=== PATIENT | female | born 1995 | race Caucasian/White ===

== ENCOUNTER 2016-07-15 20:58 | Emergency (ER) | payer MEDICAID ==
[2016-07-15 21:06] VITALS: BP 136/84
[2016-07-15] MEDS ORDERED: Alum Hydrox/Mag Hydrox/Simeth 30 ML, Lidocaine 2% 15 ML PO ONE ×2 (21:19)
[2016-07-15] MEDS ORDERED: Acetaminophen/oxyCODONE 325-5 MG Tab PO ONE (22:08)
--- NOTE | 2016-07-15 22:27 | EDM.PDOC ---
ED HPI GENERAL MEDICAL PROBLEM - General Chief Complaint: Abdominal Pain Stated Complaint: ABDOMINAL PAIN Time Seen by Provider: 07/15/16 21:10 Source of Information: Reports: Patient History Limitations: Reports: No Limitations - History of Present Illness INITIAL COMMENTS - FREE TEXT/NARRATIVE: This is a 20-year-old female. She's been having some upper abdominal pain on and off since she had a 5 months ago. He says the pain first started about a month after her and she drank some milk and it seemed to use the pain up. She has been taking Nexium recently to help with the pain and she states when it occurs normally she just tries to relax and oftentimes will go away. Over the last month and a half the pain has been more frequent and more severe. She had an ultrasound 2 weeks ago the gallbladder that did not show any acute findings. She has not had a HIDA scan. The milk that she normally takes did not help the pain today. It started around 9 AM this morning with nausea vomiting and diarrhea. Despite drinking the milk and taking the Nexium the pain has continued and seems to radiate around to her back on both sides. She denies any fever or chills no cough. 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 Neuro History: meningitis - Infectious Disease History Infectious Disease History: Reports: Meningitis - Past Surgical History GI Surgical History: Reports: None Social & Family History - Family History Family Medical History: Noncontributory - Tobacco Use Smoking Status *Q: Never Smoker Years of Tobacco use: 1 Packs/Tins Daily: 0.5 Used Tobacco, but Quit: Yes Month Tobacco Last Used: 05/2015 Second Hand Smoke Exposure: No - Caffeine Use Caffeine Use: Reports: None - Recreational Drug Use Recreational Drug Use: No ED ROS GENERAL - Review of Systems Review Of Systems: See Below Constitutional: Denies: Fever, Chills HEENT: Reports: No Symptoms Respiratory: Reports: No Symptoms Cardiovascular: Reports: No Symptoms Endocrine: Reports: No Symptoms GI/Abdominal: Reports: Abdominal Pain, Diarrhea, Nausea, Vomiting : Reports: No Symptoms Musculoskeletal: Reports: No Symptoms Skin: Reports: No Symptoms Neurological: Reports: No Symptoms Psychiatric: Reports: No Symptoms ED EXAM, GI/ABD - Physical Exam Exam: See Below Exam Limited By: No Limitations General Appearance: Alert, WD/WN, Mild Distress Eyes: Bilateral: Normal Appearance Ears: Normal External Exam Nose: Normal Inspection Throat/Mouth: Normal Inspection, Normal Lips, Normal Voice Head: Normocephalic Neck: Supple Respiratory/Chest: No Respiratory Distress, Lungs Clear Cardiovascular: Regular Rate, Rhythm, No Murmur GI/Abdominal: Soft, Other (Palpation of her upper abdomen reveals tenderness all across the upper part of her abdomen but point tenderness especially in the epigastric region, she does have bowel sounds they are decreased she does have some mild soreness in the lower abdomen over her ). No: Guarding, Rebound, Rigidity Back Exam: Full Range of Motion Extremities: Normal Inspection, Normal Range of Motion Neurological: Alert, Oriented Psychiatric: Normal Affect, Normal Mood Skin Exam: Warm, Dry Course - Vital Signs Last Recorded V/S: Last Vital Signs Temp 98.1 F 07/15/16 21:04 Pulse 103 H 07/15/16 21:04 Resp 18 07/15/16 21:04 BP 136/84 07/15/16 21:04 Pulse Ox 97 07/15/16 21:04 - Orders/Labs/Meds Labs: Laboratory Tests 07/15/16 07/15/16 Range/Units 22:19 22:19 WBC 15.64 H (3.98-10.04) K/mm3 RBC 5.00 (3.98-5.22) M/mm3 Hgb 12.5 (11.2-15.7) gm/L Hct 39.1 (34.1-44.9) % MCV 78.2 L (79.4-94.8) fl MCH 25.0 L (25.6-32.2) pg MCHC 32.0 L (32.2-35.5) g/dl RDW Std Deviation 47.8 H (36.4-46.3) fL Plt Count 421 H (182-369) K/mm3 MPV 10.3 (9.4-12.3) fl Neut % (Auto) 63.1 (34.0-71.1) % Lymph % (Auto) 29.1 (19.3-51.7) % [place] % (Auto) 4.0 L (4.7-12.5) % Eos % (Auto) 3.3 (0.7-5.8) Baso % (Auto) 0.2 (0.1-1.2) % Neut # (Auto) 9.89 H (1.56-6.13) K/mm3 Lymph # (Auto) 4.55 H (1.18-3.74) K/mm3 [place] # (Auto) 0.62 H (0.24-0.36) K/mm3 Eos # (Auto) 0.51 H (0.04-0.36) K/mm3 Baso # (Auto) 0.03 (0.01-0.08) K/mm3 Sodium 142 (136-145) mEq/L Potassium 4.0 (3.5-5.1) mEq/L Chloride 105 (98-107) mEq/L Carbon Dioxide 26 (21-32) mEq/L Anion Gap 15.0 (5-15) BUN 11 (7-18) mg/dL Creatinine 0.8 (0.55-1.02) mg/dL Est Cr Clr Drug Dosing 85.35 mL/min Estimated GFR (MDRD) > 60 (>60) mL/min BUN/Creatinine Ratio 13.8 L (14-18) Glucose 116 H (74-106) mg/dL Calcium 9.0 (8.5-10.1) mg/dL Total Bilirubin 0.2 (0.2-1.0) mg/dL AST 12 L (15-37) U/L ALT 28 (14-59) U/L Alkaline Phosphatase 116 (46-116) U/L Total Protein 7.5 (6.4-8.2) g/dl Albumin 3.7 (3.4-5.0) g/dl Globulin 3.8 gm/dL Albumin/Globulin Ratio 1.0 (1-2) Lipase 139 (73-393) U/L Meds: Medications Discontinued Medications Generic Name Dose Route Start Last Admin Trade Name Valarie PRN Reason Stop Dose Admin Al Hydroxide/Mg Hydroxide 30 0 ml 07/15/16 21:19 07/15/16 21:24 ml/ Lidocaine HCl 15 ml PO 07/15/16 21:20 45 ml ONETIME ONE Administration Oxycodone/Acetaminophen 1 tab 07/15/16 22:08 07/15/16 22:23 Percocet 325-5 Mg PO 07/15/16 22:09 Not Given ONETIME ONE - Re-Assessments/Exams Free Text/Narrative Re-Assessment/Exam: 07/16/16 01:01 I spoke to the patient regarding her symptoms. A GI cocktail relieved her pain finally completely. Her white count was 15,000 but she tells me over the last couple of years all the doctors tell her that her white count is elevated but they don't know why. I encouraged her to follow up with her family doctor for continued workup of her abdominal pain with a HIDA scan or possible upper endoscopy Departure - Departure Time of Disposition: 01:02 Disposition: Home, Self-Care 01 Condition: good Clinical Impression: Upper abdominal pain Nausea and vomiting Qualifiers: Vomiting type: unspecified Vomiting Intractability: non-intractable Qualified Code(s): R11.2 - Nausea with vomiting, unspecified - Discharge Information Instructions: Abdominal Pain, Adult, [id number] Referrals: Malinda Larios PA [Primary Care Provider] - Forms: ED Department Discharge Additional Instructions: Continue with your Nexium, get some Mylanta liquid or Maalox liquid intake it he would have the severe upper abdominal pain him a remember Mylanta will give you loose stools and Maalox we'll give you constipation so if you are to have hard stools get the Mylanta if you loose stools get the Maalox, you need to followup with your family doctor this week for a possible HIDA scan and/or referral for upper endoscopy, return to the ER as needed
== END 2016-07-16 01:15 | disposition home or self-care (01) ==
LOC: JD.ED 20:58
DX: R10.13 Epigastric pain (principal); G43.909 Migraine, unspecified, not intractable, without status migrainosus; R11.2 Nausea with vomiting, unspecified; K21.9 Gastro-esophageal reflux disease without esophagitis; Z88.0 Allergy status to penicillin; Z88.1 Allergy status to other antibiotic agents; Z91.040 Latex allergy status; Z79.899 Other long term (current) drug therapy
CPT/HCPCS: 36415; 80053; 83690; 85025; 99284; A9270; 99283

== ENCOUNTER 2016-07-28 14:03 | Emergency (ER) | payer MEDICAID ==
[2016-07-28 14:23] VITALS: BP 115/90
[2016-07-28] MEDS ORDERED: Ketorolac 30 MG/ML SDV IVPUSH ONE (14:56)
[2016-07-28] MEDS ORDERED: Sodium Chloride 0.9% 10 ML Syringe FLUSH PRN (14:56)
[2016-07-28] MEDS ORDERED: HYDROmorphone 0.5 MG/0.5 ML Syringe IVPUSH ONE (14:56)
[2016-07-28] MEDS ORDERED: Ondansetron 4 MG/2 ML SDV IVPUSH ONE (14:56)
[2016-07-28] MEDS ORDERED: Sodium Chloride 0.9% 1,000 ML IV ONE (15:31)
--- NOTE | 2016-07-28 16:01 | EDM.PDOC ---
ED HPI GENERAL MEDICAL PROBLEM - General Chief Complaint: Abdominal Pain Stated Complaint: Epigastric pain Time Seen by Provider: 07/28/16 14:40 Source of Information: Reports: Patient, Old Records, RN Notes Reviewed History Limitations: Reports: No Limitations - History of Present Illness INITIAL COMMENTS - FREE TEXT/NARRATIVE: 20 year old female presents to the ED with complaints of intermittent, severe, epigastric abdominal pain. The pain radiates into her back. No radiation to her shoulder. The pain started in February of this year, 3 weeks after having a baby. She has seen her PCP Malinda Larios for the problem and is scheduled for an outpatient EGD next week. She's had a gallbladder ultrasound which she was told was normal. She developed severe 10/10 pain after eating a sandwich around noon today which prompted her to come to the ED. She has associated nausea, vomiting , and diarrhea with the pain episodes. The pain is worse with eating and intermittent. She has cut out high fat foods, spicy foods, acidic foods, and caffeine. She denies fever or chills but says her WBC has been elevated. No chest pain, shortness of breath, or pleuritic chest pain. She is not . Denies possibilty of . Epigastric Pain Score (Numeric/FACES): 10 - Related Data Allergies Allergy/AdvReac Type Severity Reaction Status Date / Time latex Allergy Hives Verified 07/28/16 18:49 Penicillins Allergy Anaphylactic Verified 07/28/16 18:49 Shock vancomycin Allergy Itching Verified 07/28/16 18:49 Home Meds: Home Meds Esomeprazole Magnesium [Nexium 24Hr] 1 tab PO DAILY 07/15/16 [History] Acetaminophen/HYDROcodone [[place] 325-5 MG] 1 - 2 tab PO Q6H PRN #15 tablet 07/28 [Rx] Hyoscyamine Sulfate [Levsin-Sl] 0.125 mg SL TID PRN #15 tab.subl 07/28/16 [Rx] Levofloxacin [Levaquin] 500 mg PO Q24H #10 tablet 07/28/16 [Rx] Ondansetron HCl [Zofran] 4 mg PO Q8H PRN #15 tablet 07/28/16 [Rx] Past Medical History - Past Health History Medical/Surgical History: Denies Medical/Surgical History 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 History: Reports: GERD 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 Neuro History: meningitis - Infectious Disease History Infectious Disease History: Reports: Meningitis - Past Surgical History GI Surgical History: Reports: None Social & Family History - Family History Family Medical History: Noncontributory - Tobacco Use Smoking Status *Q: Current Every Day Smoker Years of Tobacco use: 3 Packs/Tins Daily: 0.5 Used Tobacco, but Quit: Yes Month Tobacco Last Used: 05/2015 Second Hand Smoke Exposure: No - Caffeine Use Caffeine Use: Reports: None - Recreational Drug Use Recreational Drug Use: No ED ROS GENERAL - Review of Systems Review Of Systems: See Below Constitutional: Reports: No Symptoms. Denies: Fever, Chills Respiratory: Reports: No Symptoms. Denies: Shortness of Breath Cardiovascular: Reports: No Symptoms. Denies: Chest Pain GI/Abdominal: Reports: Abdominal Pain, Diarrhea, Nausea, Vomiting ED EXAM, GI/ABD - Physical Exam Exam: See Below Exam Limited By: No Limitations General Appearance: Alert, WD/WN, No Apparent Distress Respiratory/Chest: No Respiratory Distress, Lungs Clear, Normal Breath Sounds Cardiovascular: Tachycardia GI/Abdominal: Normal Bowel Sounds, Soft, No Organomegaly, No Distention, Tenderness (epigastric ). No: McBurney's Sign, Snyder's Sign Back Exam: Normal Inspection, Full Range of Motion. No: CVA Tenderness (L), CVA Tenderness (R) Neurological: Alert, Oriented, Normal Cognition Course - Vital Signs Last Recorded V/S: Last Vital Signs Temp 97.8 F 07/28/16 14:18 Pulse 130 H 07/28/16 14:18 Resp 18 07/28/16 14:18 BP 115/90 07/28/16 14:18 Pulse Ox 96 07/28/16 14:18 - Orders/Labs/Meds Orders: Active Orders 24 hr Category Date Time Status Peripheral IV Care [RC] . DIRECTED Care 07/28/16 14:58 Active Peripheral IV Insertion Adult [OM.PC] Stat Oth 07/28/16 14:56 Ordered Labs: Laboratory Tests 07/28/16 07/28/16 07/28/16 Range/Units 14:45 14:45 14:45 WBC 17.56 H (3.98-10.04) K/mm3 RBC 6.05 H (3.98-5.22) M/mm3 Hgb 15.0 (11.2-15.7) gm/L Hct 46.4 H (34.1-44.9) % MCV 76.7 L (79.4-94.8) fl MCH 24.8 L (25.6-32.2) pg MCHC 32.3 (32.2-35.5) g/dl RDW Std Deviation 46.7 H (36.4-46.3) fL Plt Count 564 H (182-369) K/mm3 MPV 10.2 (9.4-12.3) fl Neutrophils % (Manual) 64 H (40-60) % Band Neutrophils % 0 (0-10) % Lymphocytes % (Manual) 32 (20-40) % Atypical Lymphs % 0 % Monocytes % (Manual) 2 (2-10) % Eosinophils % (Manual) 2 (0.7-5.8) % Basophils % (Manual) 0 L (0.1-1.2) Platelet Estimate Adequate Plt Morphology Comment Normal RBC Morph Comment Normal Sodium 139 (136-145) mEq/L Potassium 4.0 (3.5-5.1) mEq/L Chloride 102 (98-107) mEq/L Carbon Dioxide 22 (21-32) mEq/L Anion Gap 19.0 H (5-15) BUN 9 (7-18) mg/dL Creatinine 0.7 (0.55-1.02) mg/dL Est Cr Clr Drug Dosing 97.54 mL/min Estimated GFR (MDRD) > 60 (>60) mL/min BUN/Creatinine Ratio 12.9 L (14-18) Glucose 97 (74-106) mg/dL Calcium 9.4 (8.5-10.1) mg/dL Total Bilirubin 0.4 (0.2-1.0) mg/dL AST 20 (15-37) U/L ALT 34 (14-59) U/L Alkaline Phosphatase 124 H (46-116) U/L C-Reactive Protein 1.0 (<1.0) mg/dL Total Protein 8.9 H (6.4-8.2) g/dl Albumin 4.3 (3.4-5.0) g/dl Globulin 4.6 gm/dL Albumin/Globulin Ratio 0.9 L (1-2) Lipase 6377 H (73-393) U/L Meds: Medications Discontinued Medications Generic Name Dose Route Start Last Admin Trade Name Georgeq PRN Reason Stop Dose Admin Hydromorphone HCl 0.5 mg 07/28/16 14:56 07/28/16 15:05 Dilaudid IVPUSH 07/28/16 14:57 0.5 mg ONETIME ONE Administration Sodium Chloride 1,000 mls @ 999 mls/hr 07/28/16 15:31 07/28/16 15:45 Normal Saline IV 07/28/16 16:31 999 mls/hr ONETIME ONE Administration Ketorolac Tromethamine 30 mg 07/28/16 14:56 07/28/16 15:04 Toradol IVPUSH 07/28/16 14:57 30 mg ONETIME ONE Administration Ondansetron HCl 4 mg 07/28/16 14:56 07/28/16 15:03 Zofran IVPUSH 07/28/16 14:57 4 mg ONETIME ONE Administration Sodium Chloride 10 ml 07/28/16 14:56 07/28/16 15:05 Saline Flush FLUSH 10 ml ASDIRECTED PRN Administration Keep Vein Open - Re-Assessments/Exams Free Text/Narrative Re-Assessment/Exam: CBC reveals elevated WBC of 17,000 with no shift. CMP reveals anion gap of 19, bilirubin 0.4, AST 20, ALT, 34, and alk phos is mildly elevated at 124. The patient's pain and nausea resolved with Dilaudid, Toradol and Zofran. Bilirubin and liver enzymes were essentially normal. Ultrasound was not ordered since patient ate around noon today. Discussed with Dr. Harmon who recommended setting her up for a HIDA scan and starting her on Levaquin. Patient discharged with this plan and instructed to f/u with Dr. Lipscomb next week. 1730 Patient was discharged home prior to lipase result. Lipase came back at 6377 indicating acute pancreatitis. Discussed with Dr. Harmon who recommended that we have the patient return and to obtain CT of abdomen/pelvis with IV contrast only. The patient was called and has agreed to return to the ED. Departure - Departure Time of Disposition: 15:57 Disposition: Home, Self-Care 01 Condition: Good Clinical Impression: Epigastric pain - Discharge Information Prescriptions: Acetaminophen/HYDROcodone [[place] 325-5 MG] 1 - 2 tab PO Q6H PRN #15 tablet PRN Reason: Pain Hyoscyamine Sulfate [Levsin-Sl] 0.125 mg SL TID PRN #15 tab.subl PRN Reason: Abdominal Pain Levofloxacin [Levaquin] 500 mg PO Q24H #10 tablet Ondansetron HCl [Zofran] 4 mg PO Q8H PRN #15 tablet PRN Reason: Nausea/Vomiting Instructions: Abdominal Pain, Adult, [id number] Referrals: Malinda Larios PA [Primary Care Provider] - Forms: ED Department Discharge Additional Instructions: Hida Scan is scheduled for 9:30am on MondayAugust 03. Come to the Radiology department 20 minutes prior to your appointment time. Follow-up with Dr. Lipscomb next week Levsin 0.125mg under your tongue 3 times a day as eneded for abdominal pain [place] 1-2 tabs every6 hours as needed for pain not relieved by Levsin Ondansatron 4mg every 8 hours as needed for nausea Levaquin 500mg once a day for 10 days Follow-up with Dr. Lipscomb as scheduled - My Orders Last 24 Hours: My Active Orders 07/28/16 14:56 Peripheral IV Insertion Adult [OM.PC] Stat 07/28/16 14:58 Peripheral IV Care [RC] . DIRECTED - Assessment/Plan Last 24 Hours: My Active Orders 07/28/16 14:56 Peripheral IV Insertion Adult [OM.PC] Stat 07/28/16 14:58 Peripheral IV Care [RC] . DIRECTED
== END 2016-07-28 16:27 | disposition home or self-care (01) ==
LOC: JD.ED 14:03
DX: R10.13 Epigastric pain (principal); K21.9 Gastro-esophageal reflux disease without esophagitis; F17.210 Nicotine dependence, cigarettes, uncomplicated; Z79.899 Other long term (current) drug therapy; Z88.0 Allergy status to penicillin; Z88.1 Allergy status to other antibiotic agents; Z91.040 Latex allergy status
CPT/HCPCS: 36415; 80053; 83690; 85025; 86140; 96361; 96365; 96375; 99285; J1170; J1885; J2405; J7040; J7050; 99284

== ENCOUNTER 2016-07-28 18:41 | Inpatient (IN) | payer MEDICAID ==
[2016-07-28] MEDS ORDERED: Sodium Chloride 0.9% 10 ML Syringe FLUSH PRN ×2 (18:51→19:13)
[2016-07-28] MEDS ORDERED: Iopamidol 612 MG/ML 150 ML Bottle IVPUSH ONE (19:13)
[2016-07-28] MEDS ORDERED: Levofloxacin/Dextrose 5%-Water 500 MG in Premix Bag 1 BAG IV ONE (20:05)
--- NOTE | 2016-07-28 20:05 | EDM.PDOC ---
ED HPI GENERAL MEDICAL PROBLEM - General Chief Complaint: Abdominal Pain Stated Complaint: Epigastric pain Time Seen by Provider: 07/28/16 18:45 Source of Information: Reports: Patient, Old Records, RN Notes Reviewed History Limitations: Reports: No Limitations - History of Present Illness INITIAL COMMENTS - FREE TEXT/NARRATIVE: 20 year old female was seen in the ED earlier today for epigastric pain. She was discharged home with plan for HIDA scan and oral antibiotics. She was discharged prior to lipase result. Lipase came back at 6377 indicating acute pancreatitis. She was phoned to come back with plan to admit to the hospital. History is unchanged from previous visit. HPI as follows: 20 year old female presents to the ED with complaints of intermittent, severe, epigastric abdominal pain. The pain radiates into her back. No radiation to her shoulder. The pain started in February of this year, 3 weeks after having a baby. She has seen her PCP Malinda Samples for the problem and is scheduled for an outpatient EGD next week. She's had a gallbladder ultrasound which she was told was normal. She developed severe 10/10 pain after eating a sandwich around noon today which prompted her to come to the ED. She has associated nausea, vomiting, and diarrhea with the pain episodes. The pain is worse with eating and intermittent. She has cut out high fat foods, spicy foods, acidic foods, and caffeine. She denies fever or chills but says her WBC has been elevated. No chest pain, shortness of breath, or pleuritic chest pain. Abdomen Pain Score (Numeric/FACES): 2 - Related Data Allergies Allergy/AdvReac Type Severity Reaction Status Date / Time latex Allergy Hives Verified 07/28/16 18:49 Penicillins Allergy Anaphylactic Verified 07/28/16 18:49 Shock vancomycin Allergy Itching Verified 07/28/16 18:49 Home Meds: Home Meds Esomeprazole Magnesium [Nexium 24Hr] 1 tab PO DAILY 07/15/16 [History] Acetaminophen/HYDROcodone [[place] 325-5 MG] 1 - 2 tab PO Q6H PRN #15 tablet 07/28 [Rx] Hyoscyamine Sulfate [Levsin-Sl] 0.125 mg SL TID PRN #15 tab.subl 07/28/16 [Rx] Levofloxacin [Levaquin] 500 mg PO Q24H #10 tablet 07/28/16 [Rx] Ondansetron HCl [Zofran] 4 mg PO Q8H PRN #15 tablet 07/28/16 [Rx] Past Medical History - Past Health History Medical/Surgical History: Denies Medical/Surgical History 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 History: Reports: GERD 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 Neuro History: meningitis - Infectious Disease History Infectious Disease History: Reports: Meningitis - Past Surgical History GI Surgical History: Reports: None Social & Family History - Family History Family Medical History: Noncontributory - Tobacco Use Smoking Status *Q: Never Smoker Years of Tobacco use: 3 Packs/Tins Daily: 0.5 Used Tobacco, but Quit: Yes Month Tobacco Last Used: 05/2015 Second Hand Smoke Exposure: No - Caffeine Use Caffeine Use: Reports: None - Recreational Drug Use Recreational Drug Use: No ED ROS GENERAL - Review of Systems Review Of Systems: See Below Constitutional: Reports: No Symptoms. Denies: Fever, Chills Respiratory: Reports: No Symptoms Cardiovascular: Reports: No Symptoms. Denies: Chest Pain GI/Abdominal: Reports: Abdominal Pain, Diarrhea, Nausea, Vomiting ED EXAM, GI/ABD - Physical Exam Exam: See Below Exam Limited By: No Limitations General Appearance: Alert, WD/WN, No Apparent Distress Respiratory/Chest: No Respiratory Distress, Lungs Clear, Normal Breath Sounds Cardiovascular: Regular Rate, Rhythm GI/Abdominal: Normal Bowel Sounds, Soft, No Organomegaly, No Distention, No Abnormal Bruit, Tenderness (epigastric ) Neurological: Alert, Oriented, Normal Cognition Course - Vital Signs Last Recorded V/S: Last Vital Signs Temp 97.1 F 07/28/16 18:46 Pulse 106 H 07/28/16 18:46 Resp 16 07/28/16 18:46 BP 123/79 07/28/16 18:46 Pulse Ox 98 07/28/16 18:46 - Orders/Labs/Meds Orders: Active Orders 24 hr Category Date Time Status Patient Status [ADT] Routine ADT 07/28/16 20:42 Ordered Peripheral IV Care [RC] . DIRECTED Care 07/28/16 18:52 Active Abdomen Pelvis w Cont [CT] Stat Exams 07/28/16 18:51 Taken Lactated Ringers [Ringers, Lactated] 1,000 ml Med 07/28/16 20:08 Active IV .BOLUS Levofloxacin/Dextrose 5%-Water [Levaquin in D5W 500 MG/ Med 07/28/16 20:05 Active 100 ML] 500 mg Premix Bag 1 bag IV ONETIME Sodium Chloride 0.9% [Saline Flush] Med 07/28/16 18:51 Active 10 ml FLUSH ASDIRECTED PRN Sodium Chloride 0.9% [Saline Flush] Med 07/28/16 19:13 Active 10 ml FLUSH ONETIME PRN Peripheral IV Insertion Adult [OM.PC] Stat Oth 07/28/16 18:51 Ordered Medication Orders Lactated Ringer's (Ringers, Lactated) 1,000 mls @ 999 mls/hr IV .BOLUS ONE Stop: 07/28/16 21:08 Last Admin: 07/28/16 20:18 Dose: 999 mls/hr Levofloxacin/Dextrose 500 mg/ (Premix) 100 mls @ 100 mls/hr IV ONETIME ONE Stop: 07/28/16 21:04 Last Admin: 07/28/16 20:19 Dose: 100 mls/hr Sodium Chloride (Saline Flush) 10 ml FLUSH ASDIRECTED PRN PRN Reason: Keep Vein Open Last Admin: 07/28/16 19:10 Dose: 10 ml Sodium Chloride (Saline Flush) 10 ml FLUSH ONETIME PRN PRN Reason: IV FLUSH Last Admin: 07/28/16 19:34 Dose: 10 ml Labs: Laboratory Tests 07/28/16 Range/Units 19:00 Urine HCG, Qual Negative (NEGATIVE) Meds: Medications Generic Name Dose Route Start Last Admin Trade Name Freq PRN Reason Stop Dose Admin Lactated Ringer's 1,000 mls @ 999 mls/hr 07/28/16 20:08 07/28/16 20:18 Ringers, Lactated IV 07/28/16 21:08 999 mls/hr .BOLUS ONE Administration Levofloxacin/Dextrose 500 mg/ 100 mls @ 100 mls/hr 07/28/16 20:05 07/28/16 20 :19 Premix IV 07/28/16 21:04 100 mls/hr ONETIME ONE Administration Sodium Chloride 10 ml 07/28/16 18:51 07/28/16 19:10 Saline Flush FLUSH 10 ml ASDIRECTED PRN Administration Keep Vein Open Sodium Chloride 10 ml 07/28/16 19:13 07/28/16 19:34 Saline Flush FLUSH 10 ml ONETIME PRN Administration IV FLUSH Discontinued Medications Generic Name Dose Route Start Last Admin Trade Name Georgeq PRN Reason Stop Dose Admin Iopamidol 150 ml 07/28/16 19:13 07/28/16 19:33 Isovue-300 (61%) IVPUSH 07/28/16 19:14 125 ml ONETIME ONE Administration - Re-Assessments/Exams Free Text/Narrative Re-Assessment/Exam: CT of abdomen/pelvis read by [facility], impression: 1. mild wall thickening of small bowel loops in the left upper quadrant suspiciuos for enteritis. This may be infecious or inflammatory in nature 2. Probable degenerating cyst of the right ovary 3. fatty infiltration of the wall of the ascending colon and transverse colon. Patient was given 1 liter LR bolus and Levaquin 500mg IV Spoke to Dr. Lopez who has accepted care of patient for inpatient admission. Departure - Departure Time of Disposition: 20:45 Disposition: Admitted As Inpatient 66 Condition: Good Clinical Impression: Pancreatitis Qualifiers: Chronicity: acute Pancreatitis type: unspecified pancreatitis type Acute pancreatitis complication: unspecified Qualified Code(s): K85.90 - Acute pancreatitis without necrosis or infection, unspecified - Discharge Information Forms: ED Department Discharge - My Orders Last 24 Hours: My Active Orders 07/28/16 18:51 Abdomen Pelvis w Cont [CT] Stat Sodium Chloride 0.9% [Saline Flush] 10 ml FLUSH ASDIRECTED PRN Peripheral IV Insertion Adult [OM.PC] Stat 07/28/16 18:52 Peripheral IV Care [RC] . DIRECTED 07/28/16 19:13 Sodium Chloride 0.9% [Saline Flush] 10 ml FLUSH ONETIME PRN 07/28/16 20:05 Levofloxacin/Dextrose 5%-Water [Levaquin in D5W 500 MG/100 ML] 500 mg Premix Bag 1 bag IV ONETIME 07/28/16 20:08 Lactated Ringers [Ringers, Lactated] 1,000 ml IV .BOLUS 07/28/16 20:42 Patient Status [ADT] Routine - Assessment/Plan Last 24 Hours: My Active Orders 07/28/16 18:51 Abdomen Pelvis w Cont [CT] Stat Sodium Chloride 0.9% [Saline Flush] 10 ml FLUSH ASDIRECTED PRN Peripheral IV Insertion Adult [OM.PC] Stat 07/28/16 18:52 Peripheral IV Care [RC] . DIRECTED 07/28/16 19:13 Sodium Chloride 0.9% [Saline Flush] 10 ml FLUSH ONETIME PRN 07/28/16 20:05 Levofloxacin/Dextrose 5%-Water [Levaquin in D5W 500 MG/100 ML] 500 mg Premix Bag 1 bag IV ONETIME 07/28/16 20:08 Lactated Ringers [Ringers, Lactated] 1,000 ml IV .BOLUS 07/28/16 20:42 Patient Status [ADT] Routine
[2016-07-28] MEDS ORDERED: Lactated Ringers 1,000 ML IV ONE (20:08)
--- NOTE | 2016-07-28 21:28 | PCM.HP ---
H&P History of Present Illness - General Date of Service: 07/28/16 Admit Problem/Dx: Admission Diagnosis/Problem Admission Diagnosis/Problem Pancreatitis Source of Information: Patient, Old Records, Provider, RN Notes Reviewed History Limitations: Reports: No Limitations - History of Present Illness Initial Comments - Free Text/Narative: This is a 20-year-old white female with past medical history of GERD who comes in with complaints of epigastric pain. She was initially seen and was found to have an elevated lipase level of 6377. Her symptom is associated with intermittent severe epigastric pain with radiation to the shoulder. She also admits to nausea, vomiting and diarrhea. Her chief of complaints is associated with food. She recently had an abdominal ultrasound showing a fairly unremarkable gallbladder. Patient admits to having this symptom for 4 months now. She has been scheduled for HIDA scan along with EGD next week. Her initial workup shows a CBC remarkable for a WBC of 17.56, hematocrit of 46.4 %, MCV is 76.7, platelet count 564, and neutrophils of 64%. Her chemistry is remarkable for anion gap of 19, alkaline phosphatase of 124, total protein of 8.9, and lipase of 6377. Her ultrasound report reads no acute abnormal findings. Her abdominal CT scan report reads mild wall thickening of the small bowel loops in the left upper quadrant suspicious for enteritis. This may be infectious or inflammatory in nature. Probable degenerating cysts of the right ovary. And fatty infiltration of the wall of the ascending colon and transverse colon. Patient is being admitted for medical management and evaluation of acute pancreatitis. She received initial treatment in the emergency department before she was sent to the floor for further management. Abdomen Pain Score (Numeric/FACES): 2 - Related Data Allergies/Adverse Reactions: Allergies Allergy/AdvReac Type Severity Reaction Status Date / Time latex Allergy Hives Verified 07/28/16 18:49 Penicillins Allergy Anaphylactic Verified 07/28/16 18:49 Shock vancomycin Allergy Itching Verified 07/28/16 18:49 Home Medications: Home Meds Esomeprazole Magnesium [Nexium 24Hr] 1 tab PO DAILY 07/15/16 [History] Acetaminophen/HYDROcodone [[place] 325-5 MG] 1 - 2 tab PO Q6H PRN #15 tablet 07/28 [Rx] Hyoscyamine Sulfate [Levsin-Sl] 0.125 mg SL TID PRN #15 tab.subl 07/28/16 [Rx] Levofloxacin [Levaquin] 500 mg PO Q24H #10 tablet 07/28/16 [Rx] Ondansetron HCl [Zofran] 4 mg PO Q8H PRN #15 tablet 07/28/16 [Rx] Past Medical History - Past Health History Medical/Surgical History: Denies Medical/Surgical History 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 History: Reports: GERD [employer] DES[employer] History: Reports: Other Neuro History: meningitis - Infectious Disease History Infectious Disease History: Reports: Meningitis - Past Surgical History GI Surgical History: Reports: None Social & Family History - Family History Family Medical History: Noncontributory - Tobacco Use Smoking Status *Q: Never Smoker Years of Tobacco use: 3 Packs/Tins Daily: 0.5 Used Tobacco, but Quit: Yes Month Tobacco Last Used: 05/2015 Second Hand Smoke Exposure: No - Caffeine Use Caffeine Use: Reports: None - Recreational Drug Use Recreational Drug Use: No H&P Review of Systems - Review of Systems: Review Of Systems: See Below General: Denies: Fever, Chills, Decreased Appetite HEENT: Reports: No Symptoms Pulmonary: Denies: Shortness of Breath Cardiovascular: Denies: Chest Pain, Palpitations, Dyspnea on Exertion 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: Reports: Flatus. Denies: Abdominal Pain, Nausea, Vomiting Genitourinary: Reports: No Symptoms Musculoskeletal: Reports: No Symptoms Skin: Denies: Cyanosis, Jaundice, Bruising, Pruritis, Rash, Erythema, Wound Psychiatric: Denies: Depression, Anxiety, Hallucinations Neurological: Denies: Confusion, Seizure, Difficulty Walking, Weakness, Gait Disturbance Hematologic/Lymphatic: Reports: No Symptoms Immunologic: Reports: No Symptoms Exam - Exam Exam: See Below - Vital Signs Vital Signs: Last Vital Signs Temp 36.2 C 07/28/16 18:46 Pulse 106 H 07/28/16 18:46 Resp 16 07/28/16 18:46 BP 123/79 07/28/16 18:46 Pulse Ox 98 07/28/16 18:46 Weight: 92.079 kg - Exam General: Alert, Oriented, Cooperative, Mild Distress HEENT: Conjunctiva Clear, EACs Clear, EOMI, Hearing Intact, Mucosa Moist & [place] , Nares Patent, Normal Nasal Septum, Posterior Pharynx Clear, Pupils Equal, Pupils Reactive, TMs Clear Neck: Supple, Trachea Midline, +2 Carotid Pulse wo Bruit Lungs: Clear to Auscultation, Normal Respiratory Effort Cardiovascular: Regular Rate, Regular Rhythm Abdomen: Normal Bowel Sounds, Soft, Tenderness. No: Organomegaly, Peritoneal Signs, Guarding, Rigidity, Rebound (Female) Exam: Deferred Rectal (Female) Exam: Deferred Back Exam: Normal Inspection, Decreased Range of Motion Extremities: Normal Inspection, Normal Pulses. No: Clubbing, Cyanosis, Calf Tenderness, Cool, Edema, Increased Warmth Peripheral Pulses: 3+: Posterior Tibial (L), Posterior Tibial (R), Dorsalis Pedis (L), Dorsalis Pedis (R) Skin: Warm, Dry, Intact Neuro Extensive - Mental Status: Oriented x3, Normal Cognition, Memory Intact Neuro Extensive - Motor, Sensory, Reflexes: CN II-XII Intact, Normal Gait Psychiatric: Alert, Normal Affect, Normal Mood - Patient Data Result Diagrams: 07/29/16 05:50 07/29/16 05:50 *Q Meaningful Use (ADM) - VTE *Q VTE Criteria *Q: - Stroke *Q Stroke Criteria *Q: - AMI *Q AMI Criteria *Q: Problem List Initiated/Reviewed/Updated: Yes Orders Last 24hrs: Medication Orders Sodium Chloride (Saline Flush) 10 ml FLUSH ASDIRECTED PRN PRN Reason: Keep Vein Open Last Admin: 07/28/16 19:10 Dose: 10 ml Sodium Chloride (Saline Flush) 10 ml FLUSH ONETIME PRN PRN Reason: IV FLUSH Last Admin: 07/28/16 19:34 Dose: 10 ml Assessment/Plan Comment:: Assessment/Plan: Acute: Pancreatitis - Lipase 6377 - Unclear in etiology - Custer's Criteria: Incomplete-will order LDH and Lipid panel - Pending HIDA scan, will hold of narcotic pain medications - CT scan: unremarkable pancreas Nausea and Vomiting - Normal LFTS - Elevated Alk Phos level of 124 - Order GGT - PRN meds for symptomatic control Enteritis - Mild wall thickening of small bowel loops in the LUQ - Continue IV Antibiotics Leukocytosis - WBC 17.56 - CRP is normal Fatty Infiltration of the Ascending and Transverse Colon - Dietary Consult Moderate Obesity - Dietary consult - LSM Plan: Admit to Med-surge Routine AM Labs NPO except ice chips, sips or water and oral meds Demerol for pain management Resume Some Home Meds Ad Ana SW/CM for d/c planning Hold off GS consult
[2016-07-28] MEDS ORDERED: Metoprolol Tartrate 5 MG/5 ML SDV IVPUSH PRN (22:02)
[2016-07-28] MEDS ORDERED: Acetaminophen 325 MG Tab PO PRN (22:02)
[2016-07-28] MEDS ORDERED: Albuterol/Ipratropium 3.0-0.5 MG/3 ML Neb Soln NEB PRN (22:02)
[2016-07-28] MEDS ORDERED: Promethazine 12.5 MG in Sodium Chloride 0.9% 50 ML IV PRN (22:02)
[2016-07-28] MEDS ORDERED: hydrALAZINE 20 MG/ML SDV IVPUSH PRN (22:02)
[2016-07-28] MEDS ORDERED: Temazepam 15 MG Cap PO PRN (22:02)
[2016-07-28] MEDS ORDERED: LORazepam 2 MG/ML MDV IV PRN (22:02)
[2016-07-28] MEDS ORDERED: Bisacodyl 5 MG Tab PO PRN (22:02)
[2016-07-28] MEDS ORDERED: Polyethylene Glycol 3350 Powder 17 GM Packet PO PRN (22:02)
[2016-07-28] MEDS ORDERED: Ondansetron 4 MG/2 ML SDV IV PRN (22:02)
[2016-07-28] MEDS ORDERED: Hyoscyamine 0.125 MG Tab.SL SL PRN (22:05)
[2016-07-28] MEDS ORDERED: Meperidine PF 50 MG/ML Syringe IVPUSH PRN (22:12)
[2016-07-28] MEDS: metroNIDAZOLE/Normal Saline 500 MG in Premix Bag 1 BAG IV SCH (23:06)
[2016-07-28] MEDS: Meperidine PF 50 MG/ML Syringe IVPUSH PRN (23:10)
[2016-07-28] MEDS: Dextrose 5%-0.9% NaCl 1,000 ML IV SCH (23:21)
[2016-07-29] MEDS: metroNIDAZOLE/Normal Saline 500 MG in Premix Bag 1 BAG IV SCH ×3 (05:38→22:27)
[2016-07-29] MEDS: Dextrose 5%-0.9% NaCl 1,000 ML IV SCH (08:17)
--- NOTE | 2016-07-29 08:52 | PCM.PN ---
- General Info Date of Service: 07/29/16 Admission Dx/Problem (Free Text): Admission Diagnosis/Problem Admission Diagnosis/Problem Pancreatitis Anali is seen this morning with team rounding. Pain is improved, no nausea. States she is not passing gas this morning, BM yesterday morning. Pain to right shoulder blade/back is resolved. She continues NPO pending HIDA scan today and lipase level this am. Functional Status: Reports: pain controlled, ambulating, urinating. Denies: tolerating diet (NPO), new symptoms - Review of Systems General: Reports: No Symptoms. Denies: Fever HEENT: Reports: no symptoms Pulmonary: Reports: no symptoms. Denies: shortness of breath, cough Cardiovascular: Reports: No Symptoms. Denies: Chest Pain, Palpitations 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: Reports: Abdominal pain. Denies: Diarrhea, Nausea, Vomiting Neurological: Reports: No Symptoms Psychiatric: Reports: no symptoms - Patient Data Vitals - most recent: Last Vital Signs Temp 98.1 F 07/29/16 05:46 Pulse 72 07/29/16 05:46 Resp 18 07/29/16 05:46 BP 108/84 07/29/16 05:46 Pulse Ox 96 07/29/16 05:46 Weight - most recent: 203 lb I&O - last 24 hours: Intake & Output 07/28/16 07/29/16 07/29/16 22:59 06:59 14:59 Output Total 300 Balance -300 Lab Results last 24 hrs: Laboratory Results - last 24 hr 07/29/16 07/29/16 Range/Units 05:50 05:50 WBC 13.05 H (3.98-10.04) K/mm3 RBC 4.20 (3.98-5.22) M/mm3 Hgb 10.6 L (11.2-15.7) gm/L Hct 33.5 L (34.1-44.9) % MCV 79.8 (79.4-94.8) fl MCH 25.2 L (25.6-32.2) pg MCHC 31.6 L (32.2-35.5) g/dl RDW Std Deviation 47.7 H (36.4-46.3) fL Plt Count 360 (182-369) K/mm3 MPV 10.6 (9.4-12.3) fl Neut % (Auto) 62.5 (34.0-71.1) % Lymph % (Auto) 27.9 (19.3-51.7) % [place] % (Auto) 4.2 L (4.7-12.5) % Eos % (Auto) 4.9 (0.7-5.8) Baso % (Auto) 0.2 (0.1-1.2) % Neut # (Auto) 8.16 H (1.56-6.13) K/mm3 Lymph # (Auto) 3.64 (1.18-3.74) K/mm3 [place] # (Auto) 0.55 H (0.24-0.36) K/mm3 Eos # (Auto) 0.64 H (0.04-0.36) K/mm3 Baso # (Auto) 0.02 (0.01-0.08) K/mm3 Sodium 141 (136-145) mEq/L Potassium 3.9 (3.5-5.1) mEq/L Chloride 108 H (98-107) mEq/L Carbon Dioxide 22 (21-32) mEq/L Anion Gap 14.9 (5-15) BUN 7 (7-18) mg/dL Creatinine 0.7 (0.55-1.02) mg/dL Est Cr Clr Drug Dosing 97.54 mL/min Estimated GFR (MDRD) > 60 (>60) mL/min BUN/Creatinine Ratio 10.0 L (14-18) Glucose 99 (74-106) mg/dL Calcium 8.0 L (8.5-10.1) mg/dL Magnesium 1.9 (1.8-2.4) mg/dl Total Bilirubin 0.4 (0.2-1.0) mg/dL AST 13 L (15-37) U/L ALT 25 (14-59) U/L Alkaline Phosphatase 85 (46-116) U/L C-Reactive Protein 0.7 (<1.0) mg/dL Total Protein 6.2 L (6.4-8.2) g/dl Albumin 2.9 L (3.4-5.0) g/dl Globulin 3.3 gm/dL Albumin/Globulin Ratio 0.9 L (1-2) Med Orders - Current: Current Medications Acetaminophen (Tylenol) 650 mg PO Q4H PRN PRN Reason: Pain (Mild 1-3)/fever Albuterol/Ipratropium (Duoneb 3.0-0.5 Mg/3 Ml) 3 ml NEB Q4H PRN PRN Reason: Shortness Of Breath/wheezing Bisacodyl (Dulcolax) 5 mg PO DAILY PRN PRN Reason: Constipation Enoxaparin Sodium (Lovenox) 40 mg SUBCUT DAILY [facility] Hydralazine HCl (Apresoline) 20 mg IVPUSH Q4H PRN PRN Reason: Hypertension Hyoscyamine (Hyomax-Sl) 0.125 mg SL TID PRN PRN Reason: Abdominal Pain Promethazine HCl 12.5 mg/ (Sodium Chloride) 50.5 mls @ 100 mls/hr IV Q6H PRN PRN Reason: Nausea/Vomiting Metronidazole 500 mg/ Premix 100 mls @ 100 mls/hr IV Q8H [facility] Last Admin: 07/29/16 05:38 Dose: 100 mls/hr Dextrose/Sodium Chloride (Dextrose 5%-Normal Saline) 1,000 mls @ 125 mls/hr IV ASDIRECTED [facility] Last Admin: 07/29/16 08:17 Dose: 125 mls/hr Levofloxacin/Dextrose 500 mg/ (Premix) 100 mls @ 100 mls/hr IV Q24H [facility] Lorazepam (Ativan) 1 mg IV Q6H PRN PRN Reason: Nausea/Vomiting Magnesium Sulfate (Pharmacy To Dose - Magnesium Replacement) 1 dose .XX ASDIRECTED [facility] Meperidine HCl (Demerol) 75 mg IVPUSH Q4H PRN PRN Reason: Pain Last Admin: 07/28/16 23:10 Dose: 75 mg Metoprolol Tartrate (Lopressor) 5 mg IVPUSH Q4H PRN PRN Reason: Tachycardia Ondansetron HCl (Zofran) 4 mg IV Q6H PRN PRN Reason: Nausea/Vomiting Pantoprazole Sodium (Protonix Iv) 40 mg IV Q12HR [facility] Pneumococcal Polyvalent Vaccine (Pneumovax 23) 0.5 ml SUBCUT .ONCE ONE Stop: 07/29/16 09:01 Polyethylene Glycol (Miralax) 17 gm PO DAILY PRN PRN Reason: Constipation Potassium Chloride (Pharmacy To Dose - Potassium Replacement) 1 dose .XX ASDIRECTED [facility] Senna/Docusate Sodium (Senna Plus) 1 tab PO BID PRN PRN Reason: Constipation Sodium Chloride (Saline Flush) 10 ml FLUSH ASDIRECTED PRN PRN Reason: Keep Vein Open Last Admin: 07/28/16 19:10 Dose: 10 ml Sodium Chloride (Saline Flush) 10 ml FLUSH ONETIME PRN PRN Reason: IV FLUSH Last Admin: 07/28/16 19:34 Dose: 10 ml Temazepam (Restoril) 30 mg PO BEDTIME PRN PRN Reason: Sleep Discontinued Medications Lactated Ringer's (Ringers, Lactated) 1,000 mls @ 999 mls/hr IV .BOLUS ONE Stop: 07/28/16 21:08 Last Admin: 07/28/16 20:18 Dose: 999 mls/hr Levofloxacin/Dextrose 500 mg/ (Premix) 100 mls @ 100 mls/hr IV ONETIME ONE Stop: 07/28/16 21:04 Last Admin: 07/28/16 20:19 Dose: 100 mls/hr Iopamidol (Isovue-300 (61%)) 150 ml IVPUSH ONETIME ONE Stop: 07/28/16 19:14 Last Admin: 07/28/16 19:33 Dose: 125 ml Meperidine HCl (Demerol) 50 mg IVPUSH Q4H PRN PRN Reason: Pain - Exam Quality Assessment: DVT prophylaxis General: alert, oriented, cooperative, no acute distress HEENT: Pupils equal, Pupils reactive, EOMI, Mucous membr. moist/pink Neck: supple Lungs: Clear to auscultation, Normal respiratory effort Cardiovascular: Regular Rate, Regular Rhythm Abdomen: bowel sounds present, soft, no distension, tenderness (upper abdomen, rt upper and epigastrium most tender). No: rigidity, rebound, guarding (Female) Exam: Deferred Extremities: no edema, no calf tenderness Peripheral Pulses: 1+: Dorsalis Pedis (L), Dorsalis Pedis (R) Skin: warm, dry, intact Neurological: no new focal deficit Psy/Mental Status: alert, normal affect, normal mood - Problem List & Annotations (1) Pancreatitis SNOMED Code(s): 63965822 Code(s): K85.90 - ACUTE PANCREATITIS WITHOUT NECROSIS OR INFECTION, UNSP Status: Acute Priority: Medium Current Visit: Yes Qualifiers: Chronicity: acute Pancreatitis type: unspecified pancreatitis type Acute pancreatitis complication: unspecified Qualified Code(s): K85.90 - Acute pancreatitis without necrosis or infection, unspecified (2) GERD (gastroesophageal reflux disease) SNOMED Code(s): 627716525 Code(s): K21.9 - GASTRO-ESOPHAGEAL REFLUX DISEASE WITHOUT ESOPHAGITIS Status: Chronic Priority: High Current Visit: Yes Qualifiers: Esophagitis presence: esophagitis presence not specified Qualified Code(s) : K21.9 - Gastro-esophageal reflux disease without esophagitis - Problem List Review Problem List Initiated/Reviewed/Updated: Yes - My Orders Last 24 Hours: My Active Orders 07/29/16 08:34 LIPASE [CHEM] Routine - Plan Plan:: Assessment/Plan: Acute: Pancreatitis - Lipase 6377-->131 today - Unclear in etiology; r/o GB with HIDA scan today; had abd US as outpatient - Adarsh's Criteria: Incomplete will order LDH and Lipid panel; triglycerides acceptable, slightly elevated LDL at 146. - Pending HIDA scan - CT scan: unremarkable pancreas Nausea and Vomiting--resolved - Normal LFTS - Elevated Alk Phos level of 124 - Order GGT - PRN meds for symptomatic control Enteritis - Mild wall thickening of small bowel loops in the LUQ - Continue IV Antibiotics Leukocytosis - WBC 17.56--improved today - CRP is normal---slight elevated today Fatty Infiltration of the Ascending and Transverse Colon - Dietary Consult--also for hyperlipidemia and obesity Obesity - Dietary consult - LSM Plan: Admit to Med-surge Routine AM Labs Demerol for pain management--pain better controlled today Cont NPO until HIDA scan completed; then will advance to clear liquids- then as tolerated. Once eating and drinking without N/V and pain can DC home later today or tomorrow. Ad Ana SW/CM for d/c planning Hold off GS consult pending HIDA scan Patient is Full Code status
[2016-07-29] MEDS ORDERED: Pneumococcal Polyvalent-23 Vaccine 0.5 ML SDV SUBCUT ONE (09:00)
[2016-07-29] MEDS ORDERED: Pantoprazole 40 MG Vial IV SCH (09:00)
[2016-07-29] MEDS: Enoxaparin 40 MG/0.4 ML Syringe SUBCUT SCH (09:34)
[2016-07-29] MEDS: Levofloxacin/Dextrose 5%-Water 500 MG in Premix Bag 1 BAG IV SCH (09:34)
--- NOTE | 2016-07-29 10:38 | CT ---
CT abdomen and pelvis Technique: Multiple axial sections were obtained from above the dome of the diaphragm inferiorly through the pubic symphysis. Intravenous contrast was utilized. No oral contrast has been given. Comparison: No previous abdominal CT, previous abdominal ultrasound of 06/30/16 is available. Findings: Small portion of the visualized lung bases show nothing acute. Slight chronic appearing atelectasis/scarring noted within the lingula. Liver shows no focal parenchymal abnormality. Spleen appears within normal limits. Adrenal glands show no nodule. Pancreas appears within normal limits. Kidneys show symmetric contrast enhancement without hydronephrosis or mass. Slight bowel wall thickening seen within jejunal loops within the left upper abdomen. No bowel obstruction is seen. No pelvic mass or adenopathy is identified. No free fluid or inflammatory change is seen. Minimal fatty change noted within the wall of the transverse colon believed to be incidental. Several small calcified appendicoliths seen within the proximal appendix. Nothing definite seen at this time to indicate appendicitis. Bone window settings were reviewed which appear within normal limits. Impression: 1. Pancreas appears within normal limits. 2. Several calcified appendicoliths within the proximal appendix. Appendix otherwise appears within normal limits. 3. Mild wall thickening suggested to proximal jejunal loops. Please correlate if patient has any symptoms of enteritis. These findings can also be caused by lack of distention from no oral contrast. 4. Other findings felt to be incidental as described above. Diagnostic code #3 Agree with preliminary report issued by [employer] [facility] ([facility] preliminary report dictated on 07/28/16, 9:03 PM Central Time)
--- NOTE | 2016-07-29 15:28 | NM ---
Biliary HIDA scan with ejection fraction Technique: 2.4 mCi of technetium 99m mebrofenin was given intravenously. Scintigraphic imaging then obtained over the upper abdomen. During the study, 3 ounces a heavy whipping cream was given with 1 teaspoon of sugar. Findings: Normal activity is seen within gallbladder and within small bowel. Gallbladder ejection fraction is borderline at 45%. Impression: 1. Normal biliary HIDA scan with borderline normal ejection fraction of 45%. Diagnostic code #3
[2016-07-29] MEDS: Pantoprazole 40 MG Tab.CR PO SCH (20:39)
[2016-07-29] MEDS: Meperidine PF 50 MG/ML Syringe IVPUSH PRN (20:46)
[2016-07-30] MEDS: metroNIDAZOLE/Normal Saline 500 MG in Premix Bag 1 BAG IV SCH (05:39)
[2016-07-30 08:04] VITALS: BP 108/58
[2016-07-30] MEDS: Levofloxacin/Dextrose 5%-Water 500 MG in Premix Bag 1 BAG IV SCH (08:15)
[2016-07-30] MEDS: Pantoprazole 40 MG Tab.CR PO SCH (08:15)
[2016-07-30] MEDS: Enoxaparin 40 MG/0.4 ML Syringe SUBCUT SCH (08:15)
--- NOTE | 2016-07-30 10:55 | PCM.DCSUM1 ---
Discharge Summary - Hospital Course Brief History: This is a 20-year-old white female with past medical history of GERD who comes in with complaints of epigastric pain. She was initially seen and was found to have an elevated lipase level of 6377. Her symptom is associated with intermittent severe epigastric pain with radiation to the shoulder. She also admits to nausea, vomiting and diarrhea. Her chief of complaints is associated with food. She recently had an abdominal ultrasound showing a fairly unremarkable gallbladder. Patient was admitted for medical evlaution of Acute Pancreatitis. - Discharge Data Discharge Date: 07/30/16 Discharge Disposition: Home, Self-Care 01 Condition: Good - Discharge Diagnosis/Problem(s) (1) Pancreatitis SNOMED Code(s): 99668258 ICD Code: K85.90 - ACUTE PANCREATITIS WITHOUT NECROSIS OR INFECTION, UNSP Status: Acute Priority: Medium Qualifiers: Chronicity: acute Pancreatitis type: unspecified pancreatitis type Acute pancreatitis complication: unspecified Qualified Code(s): K85.90 - Acute pancreatitis without necrosis or infection, unspecified (2) Dyslipidemia (high LDL; low HDL) SNOMED Code(s): 790869412 ICD Code: E78.4 - OTHER HYPERLIPIDEMIA Status: Acute - Patient Summary/Data Operative Procedure(s) Performed: None Complications: None Consults: Consultations 07/28/16 22:04 Consult to Case Management [CONS] Routine Consult to Casket Assembler Metal [CONS] Routine Consult to Street Roller Engineer [CONS] Routine Consult to Spiritual Care [CONS] Routine Hospital Course: Patient was primarily admitted for acute pancreatitis with unknown etiology. She carried no significant GI related past medical history except for GERD. All imaging studies were benign (Abdominal CT scan and HIDA scan). Patient came in with a pancreatic level of 6377. With supportive care and pain medications, her level resolved to 131, which was normal. Her hospital course was uncomplicated. However during this admission, patient was found to have abnormal cholesterol level and therefore dietary was consulted for diet modification. She is now stable for discharge. She was able to tolerate regular meals without any GI symptoms. She was advised to resume her home medications as initially prescribed. She was further advise to avoid greasy, fatty, or any fried meals for at least a week. She is to keep her outpatient appointment as originally scheduled. Patient expressed understanding and in agreement with the plans as discussed above. We spent over 45 minutes regarding lifestyle modification on the day of her discharge. This includes proper diet, regular exercise and weight loss. She is to call her PCP for any questions or concerns after discharge. - Patient Instructions Diet: Usual Diet as Tolerated Activity: As Tolerated Driving: Do Not Drive Showering/Bathing: May Shower Notify Provider of: Fever, Increased Pain, Nausea and/or Vomiting Other/Special Instructions: - Avoid greasy-fatty meal for 1 week. - Please call or follow up with your PCP after discharge - Discharge Plan Home Medications: Home Meds Esomeprazole Magnesium [Nexium 24Hr] 1 tab PO DAILY 07/15/16 [History] Acetaminophen/HYDROcodone [[place] 325-5 MG] 1 - 2 tab PO Q6H PRN #15 tablet 07/28 [Rx] Hyoscyamine Sulfate [Levsin-Sl] 0.125 mg SL TID PRN #15 tab.subl 07/28/16 [Rx] Levofloxacin [Levaquin] 500 mg PO Q24H #10 tablet 07/28/16 [Rx] Ondansetron HCl [Zofran] 4 mg PO Q8H PRN #15 tablet 07/28/16 [Rx] Patient Handouts: Smoking Cessation, Tips for Success, [id number], Acute Pancreatitis Referrals: Malinda Larios PA [Physician Motor Man] - - Discharge Summary/Plan Comment DC Time >30 min.: Yes (45 mins) Discharge Summary/Plan Comment: Discharge to Home - General Info Date of Service: 07/30/16 Admission Dx/Problem (Free Text: Admission Diagnosis/Problem Admission Diagnosis/Problem Pancreatitis Subjective Update: Follow up Functional Status: Reports: pain controlled, tolerating diet, ambulating, urinating. Denies: new symptoms - Review of Systems General: Denies: Fever, Chills HEENT: Reports: no symptoms Pulmonary: Denies: shortness of breath Cardiovascular: Denies: Chest Pain 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: Denies: Abdominal pain, Decreased appetite, Diarrhea, Difficulty swallowing, Nausea, Vomiting Genitourinary: Reports: no symptoms Musculoskeletal: Reports: no symptoms Skin: Reports: no symptoms Neurological: Denies: Confusion, Difficulty Walking, Weakness, Gait Disturbance Psychiatric: Denies: depression, anxiety, agitation, hallucinations Systems Review Comment: No overnight or acute issues. She is doing relatively well. She is now tolerating regular meal w/o any symptoms. - Patient Data Vitals - Most Recent: Last Vital Signs Temp 36.8 C 07/30/16 08:02 Pulse 77 07/30/16 08:02 Resp 16 07/30/16 08:02 BP 108/58 L 07/30/16 08:02 Pulse Ox 95 07/30/16 08:02 Weight - Most Recent: 92.805 kg I&O - Last 24 hours: Intake & Output 07/29/16 07/30/16 07/30/16 22:59 06:59 14:59 Intake Total 2360 300 Output Total 600 Balance 2360 -300 Lab Results - Last 24 hrs: Laboratory Results - last 24 hr 07/30/16 07/30/16 Range/Units 06:20 06:20 WBC 11.23 H (3.98-10.04) K/mm3 RBC 4.21 (3.98-5.22) M/mm3 Hgb 10.7 L (11.2-15.7) gm/L Hct 33.7 L (34.1-44.9) % MCV 80.0 (79.4-94.8) fl MCH 25.4 L (25.6-32.2) pg MCHC 31.8 L (32.2-35.5) g/dl RDW Std Deviation 47.2 H (36.4-46.3) fL Plt Count 323 (182-369) K/mm3 MPV 10.6 (9.4-12.3) fl Neut % (Auto) 58.6 (34.0-71.1) % Lymph % (Auto) 30.6 (19.3-51.7) % [place] % (Auto) 4.5 L (4.7-12.5) % Eos % (Auto) 5.8 (0.7-5.8) Baso % (Auto) 0.3 (0.1-1.2) % Neut # (Auto) 6.59 H (1.56-6.13) K/mm3 Lymph # (Auto) 3.44 (1.18-3.74) K/mm3 [place] # (Auto) 0.50 H (0.24-0.36) K/mm3 Eos # (Auto) 0.65 H (0.04-0.36) K/mm3 Baso # (Auto) 0.03 (0.01-0.08) K/mm3 Magnesium 1.8 (1.8-2.4) mg/dl C-Reactive Protein 0.7 (<1.0) mg/dL Med Orders - Current: Current Medications Acetaminophen (Tylenol) 650 mg PO Q4H PRN PRN Reason: Pain (Mild 1-3)/fever Albuterol/Ipratropium (Duoneb 3.0-0.5 Mg/3 Ml) 3 ml NEB Q4H PRN PRN Reason: Shortness Of Breath/wheezing Bisacodyl (Dulcolax) 5 mg PO DAILY PRN PRN Reason: Constipation Enoxaparin Sodium (Lovenox) 40 mg SUBCUT DAILY [facility] Last Admin: 07/30/16 08:15 Dose: Not Given Hydralazine HCl (Apresoline) 20 mg IVPUSH Q4H PRN PRN Reason: Hypertension Hyoscyamine (Hyomax-Sl) 0.125 mg SL TID PRN PRN Reason: Abdominal Pain Promethazine HCl 12.5 mg/ (Sodium Chloride) 50.5 mls @ 100 mls/hr IV Q6H PRN PRN Reason: Nausea/Vomiting Metronidazole 500 mg/ Premix 100 mls @ 100 mls/hr IV Q8H [facility] Last Admin: 07/30/16 05:39 Dose: 100 mls/hr Levofloxacin/Dextrose 500 mg/ (Premix) 100 mls @ 100 mls/hr IV Q24H [facility] Last Admin: 07/30/16 08:15 Dose: 100 mls/hr Lorazepam (Ativan) 1 mg IV Q6H PRN PRN Reason: Nausea/Vomiting Magnesium Sulfate (Pharmacy To Dose - Magnesium Replacement) 1 dose .XX ASDIRECTED [facility] Meperidine HCl (Demerol) 75 mg IVPUSH Q4H PRN PRN Reason: Pain Last Admin: 07/29/16 20:46 Dose: 75 mg Metoprolol Tartrate (Lopressor) 5 mg IVPUSH Q4H PRN PRN Reason: Tachycardia Ondansetron HCl (Zofran) 4 mg IV Q6H PRN PRN Reason: Nausea/Vomiting Last Admin: 07/29/16 21:00 Dose: 4 mg Pantoprazole Sodium (Protonix) 40 mg PO Q12HR [facility] Last Admin: 07/30/16 08:15 Dose: 40 mg Polyethylene Glycol (Miralax) 17 gm PO DAILY PRN PRN Reason: Constipation Potassium Chloride (Pharmacy To Dose - Potassium Replacement) 1 dose .XX ASDIRECTED [facility] Senna/Docusate Sodium (Senna Plus) 1 tab PO BID PRN PRN Reason: Constipation Sodium Chloride (Saline Flush) 10 ml FLUSH ASDIRECTED PRN PRN Reason: Keep Vein Open Last Admin: 07/28/16 19:10 Dose: 10 ml Sodium Chloride (Saline Flush) 10 ml FLUSH ONETIME PRN PRN Reason: IV FLUSH Last Admin: 07/28/16 19:34 Dose: 10 ml Temazepam (Restoril) 30 mg PO BEDTIME PRN PRN Reason: Sleep Discontinued Medications Lactated Ringer's (Ringers, Lactated) 1,000 mls @ 999 mls/hr IV .BOLUS ONE Stop: 07/28/16 21:08 Last Admin: 07/28/16 20:18 Dose: 999 mls/hr Levofloxacin/Dextrose 500 mg/ (Premix) 100 mls @ 100 mls/hr IV ONETIME ONE Stop: 07/28/16 21:04 Last Admin: 07/28/16 20:19 Dose: 100 mls/hr Dextrose/Sodium Chloride (Dextrose 5%-Normal Saline) 1,000 mls @ 125 mls/hr IV ASDIRECTED [facility] Last Admin: 07/29/16 08:17 Dose: 125 mls/hr Iopamidol (Isovue-300 (61%)) 150 ml IVPUSH ONETIME ONE Stop: 07/28/16 19:14 Last Admin: 07/28/16 19:33 Dose: 125 ml Meperidine HCl (Demerol) 50 mg IVPUSH Q4H PRN PRN Reason: Pain Pantoprazole Sodium (Protonix Iv) 40 mg IV Q12HR [facility] Last Admin: 07/29/16 09:34 Dose: 40 mg Pneumococcal Polyvalent Vaccine (Pneumovax 23) 0.5 ml SUBCUT .ONCE ONE Stop: 07/29/16 09:01 - Exam General: Reports: alert, oriented, cooperative, no acute distress, other (Obese) HEENT: Reports: Pupils equal, Pupils reactive, EOMI, Mucous membr. moist/pink Neck: Reports: supple, trachea midline, no JVD Lungs: Reports: Clear to auscultation, Normal respiratory effort Cardiovascular: Reports: Regular Rate, Regular Rhythm (Female) Exam: Deferred Rectal (Female) Exam: Deferred Back Exam: Reports: Normal Inspection, Decreased Range of Motion Extremities: Reports: no edema, normal pulses, no tenderness/swelling, no clubbing, no cyanosis, no calf tenderness Skin: Reports: warm, dry, intact Neurological: Reports: no new focal deficit Psy/Mental Status: Reports: alert, normal affect, normal mood *Q Meaningful Use (DIS) - VTE *Q VTE Criteria *Q: - Stroke *Q Stroke Criteria *Q: - AMI *Q AMI Criteria *Q:
== END 2016-07-30 12:06 | disposition home or self-care (01) | DRG 440 ==
LOC: JD.ED 18:41 → JD.MS 20:42
PROVIDERS: ADMIT Internal Medicine; ATTEND Internal Medicine
DX: K85.90 Acute pancreatitis without necrosis or infection, unspecified (principal); K21.9 Gastro-esophageal reflux disease without esophagitis; E78.4 Other hyperlipidemia; E66.9 Obesity, unspecified
CPT/HCPCS: 74177; 80061; 81025; 82977; 83615; 83625; 96365; J1956; J7050 ×2; J7120; Q9967; 36415; 78227; 78227-26; 80053; 83690; 83735; 85025; 86140; 99222; 99232; 99239; A9270-GY; A9537; C9113; J1650; J2175; J2405; J7042

== ENCOUNTER 2016-08-10 20:11 | Emergency (ER) | payer MEDICAID ==
[2016-08-10 20:24] VITALS: BP 130/86
[2016-08-10] MEDS ORDERED: Sodium Chloride 0.9% 1,000 ML IV STA (20:36)
[2016-08-10] MEDS ORDERED: Ondansetron 4 MG/2 ML SDV IVPUSH ONE (20:36)
[2016-08-10] MEDS ORDERED: Sodium Chloride 0.9% 10 ML Syringe FLUSH PRN (20:36)
[2016-08-10] MEDS ORDERED: HYDROmorphone 1 MG/ML Syringe IVPUSH ONE (20:37)
--- NOTE | 2016-08-10 20:43 | EDM.PDOC ---
ED HPI GENERAL MEDICAL PROBLEM - General Chief Complaint: Abdominal Pain Stated Complaint: UPPER ABDOMINAL PAIN Time Seen by Provider: 08/10/16 20:20 Source of Information: Reports: Patient History Limitations: Reports: No Limitations - History of Present Illness INITIAL COMMENTS - FREE TEXT/NARRATIVE: The patient presents with upper abdominal pain that started over 1 week ago. She was admitted for pancreatitis over 2 weeks ago. Her lipase came back to normal and she was discharged and she was doing better. She had a before the pancreatitis. She has been eating a low fat diet. She has nausea and vomiting and she has some diarrhea. She denies fever or chills. She does not drink alcohol and this has never happened before. She has no dysuria. Onset: Gradual Duration: Week(s): Location: Reports: Abdomen Quality: Reports: Sharp Severity: Moderate Improves with: Reports: None Worsens with: Reports: None Associated Symptoms: Reports: Nausea/Vomiting. Denies: Fever/Chills mid abdomen radiates to back Pain Score (Numeric/FACES): 8 - Related Data Allergies Allergy/AdvReac Type Severity Reaction Status Date / Time latex Allergy Hives Verified 08/10/16 20:24 Penicillins Allergy Anaphylactic Verified 08/10/16 20:24 Shock vancomycin Allergy Itching Verified 08/10/16 20:24 Home Meds: Home Meds Acetaminophen/HYDROcodone [[place] 325-5 MG] 1 - 2 tab PO Q6H PRN #15 tablet 07/28 [Rx] Ondansetron HCl [Zofran] 4 mg PO Q8H PRN #15 tablet 07/28/16 [Rx] Hyoscyamine Sulfate [Levsin-Sl] 1 tab SL TID PRN 08/10/16 [History] Ondansetron [Zofran ODT] 4 mg PO Q6H PRN #20 tab.dis 08/10/16 [Rx] Past Medical History - Past Health History Medical/Surgical History: Denies Medical/Surgical History Respiratory History: Reports: Pneumonia, Recurrent Other Respiratory History: yearly pneumonia 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 History: Reports: GERD, Pancreatitis HEALTHCARE MARKETER History: Reports: Other Neuro History: meningitis Endocrine/Metabolic History: Reports: Obesity/BMI 30+ - Infectious Disease History Infectious Disease History: Reports: Meningitis - Past Surgical History GI Surgical History: Reports: None Social & Family History - Family History Family Medical History: Noncontributory - Tobacco Use Smoking Status *Q: Current Every Day Smoker Years of Tobacco use: 3 Packs/Tins Daily: 0.5 Used Tobacco, but Quit: Yes Month Tobacco Last Used: 05/2015 Second Hand Smoke Exposure: No - Caffeine Use Caffeine Use: Reports: None - Recreational Drug Use Recreational Drug Use: No ED ROS GENERAL - Review of Systems Review Of Systems: See Below Constitutional: Reports: No Symptoms HEENT: Reports: No Symptoms Respiratory: Reports: No Symptoms Cardiovascular: Reports: No Symptoms Endocrine: Reports: No Symptoms GI/Abdominal: Reports: Abdominal Pain, Diarrhea, Nausea, Vomiting : Reports: No Symptoms Musculoskeletal: Reports: No Symptoms Skin: Reports: No Symptoms ED EXAM, GI/ABD - Physical Exam Exam: See Below Exam Limited By: No Limitations General Appearance: Alert, No Apparent Distress Ears: Normal External Exam Nose: Normal Inspection Head: Atraumatic, Normocephalic Neck: Normal Inspection Respiratory/Chest: No Respiratory Distress, Lungs Clear, Normal Breath Sounds Cardiovascular: Normal Peripheral Pulses, Regular Rate, Rhythm, No Edema, No Gallop GI/Abdominal: Soft, No Organomegaly, No Mass, Tenderness (Moderate) Back Exam: Normal Inspection Extremities: Normal Inspection Course - Vital Signs Last Recorded V/S: Last Vital Signs Temp 98.1 F 08/10/16 20:18 Pulse 110 H 08/10/16 20:18 Resp 18 08/10/16 20:18 BP 130/86 08/10/16 20:18 Pulse Ox 100 08/10/16 20:18 - Orders/Labs/Meds Orders: Active Orders 24 hr Category Date Time Status Peripheral IV Care [RC] . DIRECTED Care 08/10/16 20:36 Active Sodium Chloride 0.9% [Normal Saline] 1,000 ml Med 08/10/16 22:15 Active IV ASDIRECTED Sodium Chloride 0.9% [Saline Flush] Med 08/10/16 20:36 Active 10 ml FLUSH ASDIRECTED PRN ED Antiemetic Medication Reflex [OM.PC] Stat Oth 08/10/16 20:36 Ordered Peripheral IV Insertion Adult [OM.PC] Stat Oth 08/10/16 20:36 Ordered Medication Orders Sodium Chloride (Normal Saline) 1,000 mls @ 150 mls/hr IV ASDIRECTED [facility] Last Admin: 08/10/16 22:25 Dose: 150 mls/hr Sodium Chloride (Saline Flush) 10 ml FLUSH ASDIRECTED PRN PRN Reason: Keep Vein Open Last Admin: 08/10/16 21:04 Dose: 10 ml Labs: Laboratory Tests 08/10/16 08/10/16 08/10/16 Range/Units 20:33 20:33 20:33 WBC 15.01 H (3.98-10.04) K/mm3 RBC 5.77 H (3.98-5.22) M/mm3 Hgb 14.6 (11.2-15.7) gm/L Hct 45.9 H (34.1-44.9) % MCV 79.5 (79.4-94.8) fl MCH 25.3 L (25.6-32.2) pg MCHC 31.8 L (32.2-35.5) g/dl RDW Std Deviation 49.1 H (36.4-46.3) fL Plt Count 450 H (182-369) K/mm3 MPV 10.5 (9.4-12.3) fl Neut % (Auto) 71.5 H (34.0-71.1) % Lymph % (Auto) 22.2 (19.3-51.7) % [place] % (Auto) 4.0 L (4.7-12.5) % Eos % (Auto) 1.7 (0.7-5.8) Baso % (Auto) 0.3 (0.1-1.2) % Neut # (Auto) 10.75 H (1.56-6.13) K/mm3 Lymph # (Auto) 3.33 (1.18-3.74) K/mm3 [place] # (Auto) 0.60 H (0.24-0.36) K/mm3 Eos # (Auto) 0.25 (0.04-0.36) K/mm3 Baso # (Auto) 0.04 (0.01-0.08) K/mm3 Manual Slide Review Abnormal smear Sodium 139 (136-145) mEq/L Potassium 3.7 (3.5-5.1) mEq/L Chloride 101 (98-107) mEq/L Carbon Dioxide 26 (21-32) mEq/L Anion Gap 15.7 H (5-15) BUN 8 (7-18) mg/dL Creatinine 0.8 (0.55-1.02) mg/dL Est Cr Clr Drug Dosing 85.35 mL/min Estimated GFR (MDRD) > 60 (>60) mL/min BUN/Creatinine Ratio 10.0 L (14-18) Glucose 102 (74-106) mg/dL Calcium 9.2 (8.5-10.1) mg/dL Total Bilirubin 0.3 (0.2-1.0) mg/dL AST 17 (15-37) U/L ALT 28 (14-59) U/L Alkaline Phosphatase 94 (46-116) U/L Total Protein 8.7 H (6.4-8.2) g/dl Albumin 4.5 (3.4-5.0) g/dl Globulin 4.2 gm/dL Albumin/Globulin Ratio 1.1 (1-2) Lipase 8464 H (73-393) U/L HCG, Qual Negative (NEGATIVE) Urine Color (Yellow) Urine Appearance (Clear) Urine pH (5.0-8.0) Ur Specific [place] (1.005-1.030) Urine Protein (Negative) Urine Glucose (UA) (Negative) Urine Ketones (Negative) Urine Occult Blood (Negative) Urine Nitrite (Negative) Urine Bilirubin (Negative) Urine Urobilinogen (0.2-1.0) Ur Leukocyte Esterase (Negative) Urine RBC (0-5) /hpf Urine WBC (0-5) /hpf Ur Epithelial Cells (0-5) /hpf Urine Bacteria (FEW) /hpf Urine Mucus (FEW) /hpf 08/10/16 Range/Units 20:51 WBC (3.98-10.04) K/mm3 RBC (3.98-5.22) M/mm3 Hgb (11.2-15.7) gm/L Hct (34.1-44.9) % MCV (79.4-94.8) fl MCH (25.6-32.2) pg MCHC (32.2-35.5) g/dl RDW Std Deviation (36.4-46.3) fL Plt Count (182-369) K/mm3 MPV (9.4-12.3) fl Neut % (Auto) (34.0-71.1) % Lymph % (Auto) (19.3-51.7) % [place] % (Auto) (4.7-12.5) % Eos % (Auto) (0.7-5.8) Baso % (Auto) (0.1-1.2) % Neut # (Auto) (1.56-6.13) K/mm3 Lymph # (Auto) (1.18-3.74) K/mm3 [place] # (Auto) (0.24-0.36) K/mm3 Eos # (Auto) (0.04-0.36) K/mm3 Baso # (Auto) (0.01-0.08) K/mm3 Manual Slide Review Sodium (136-145) mEq/L Potassium (3.5-5.1) mEq/L Chloride (98-107) mEq/L Carbon Dioxide (21-32) mEq/L Anion Gap (5-15) BUN (7-18) mg/dL Creatinine (0.55-1.02) mg/dL Est Cr Clr Drug Dosing mL/min Estimated GFR (MDRD) (>60) mL/min BUN/Creatinine Ratio (14-18) Glucose (74-106) mg/dL Calcium (8.5-10.1) mg/dL Total Bilirubin (0.2-1.0) mg/dL AST (15-37) U/L ALT (14-59) U/L Alkaline Phosphatase (46-116) U/L Total Protein (6.4-8.2) g/dl Albumin (3.4-5.0) g/dl Globulin gm/dL Albumin/Globulin Ratio (1-2) Lipase (73-393) U/L HCG, Qual (NEGATIVE) Urine Color Yellow (Yellow) Urine Appearance Clear (Clear) Urine pH 5.5 (5.0-8.0) Ur Specific [place] > or = 1.030 (1.005-1.030) Urine Protein 1+ H (Negative) Urine Glucose (UA) Negative (Negative) Urine Ketones Negative (Negative) Urine Occult Blood 3+ H (Negative) Urine Nitrite Negative (Negative) Urine Bilirubin 1+ H (Negative) Urine Urobilinogen 0.2 (0.2-1.0) Ur Leukocyte Esterase Negative (Negative) Urine RBC 20-30 H (0-5) /hpf Urine WBC 0-5 (0-5) /hpf Ur Epithelial Cells 10-20 H (0-5) /hpf Urine Bacteria Few (FEW) /hpf Urine Mucus Moderate H (FEW) /hpf Meds: Medications Generic Name Dose Route Start Last Admin Trade Name Freq PRN Reason Stop Dose Admin Sodium Chloride 1,000 mls @ 150 mls/hr 08/10/16 22:15 08/10/16 22:25 Normal Saline IV 150 mls/hr ASDIRECTED FUNMI Administration Sodium Chloride 10 ml 08/10/16 20:36 08/10/16 21:04 Saline Flush FLUSH 10 ml ASDIRECTED PRN Administration Keep Vein Open Discontinued Medications Generic Name Dose Route Start Last Admin Trade Name Freq PRN Reason Stop Dose Admin Hydromorphone HCl 1 mg 08/10/16 20:37 08/10/16 21:03 Dilaudid IVPUSH 08/10/16 20:38 1 mg ONETIME ONE Administration Sodium Chloride 1,000 mls @ 1,000 mls/hr 08/10/16 20:36 08/10/16 21:04 Normal Saline IV 08/10/16 21:35 1,000 mls/hr .BOLUS STA Administration Ondansetron HCl 4 mg 08/10/16 20:36 08/10/16 20:59 Zofran IVPUSH 08/10/16 20:37 4 mg ONETIME ONE Administration - Re-Assessments/Exams Free Text/Narrative Re-Assessment/Exam: 08/10/16 20:42 I ordered an IV NS 1L bolus, zofran 4mg IV, dilaudid 1mg IV, labs and UA. 08/10/16 23:05 Her WBC was elevated at 15.01. Her CMP looks good. Her HCG is negative. Her UA shows no UTI. Her lipase was elevated at 8464. When she was admitted 2 weeks ago, her lipase was 6377. She feels better now. She does not want to be admitted at this time. She would like to try outpatient treatment. I will give her some percocet for pain, zofran for nausea and clear liquid diet for 3 days. She is to return if she is worse. She will call Malinda Billy tomorrow. I feel she should see GI. Departure - Departure Time of Disposition: 23:10 Disposition: Home, Self-Care 01 Condition: Good Clinical Impression: Pancreatitis Qualifiers: Chronicity: acute Pancreatitis type: unspecified pancreatitis type Acute pancreatitis complication: unspecified Qualified Code(s): K85.90 - Acute pancreatitis without necrosis or infection, unspecified - Discharge Information Prescriptions: Ondansetron [Zofran ODT] 4 mg PO Q6H PRN #20 tab.dis PRN Reason: Nausea/Vomiting Referrals: Malinda Larios PA [Primary Care Provider] - Forms: ED Department Discharge Additional Instructions: Do a clear liquid diet for 3 days. That includes clear soda, broth, and clear juices. After that advance your diet as tolerated. Take the percocet as needed for pain. Take the zofran as needed for nausea. Please return if you are worse. Call Malinda Cervantes's office in the morning and see if you can get in tomorrow or the next day. I feel you may need a referral to a manager operational in [place]. At this point I am not sure what is causing your recurrent pancreatitis. - My Orders Last 24 Hours: My Active Orders 08/10/16 20:36 Peripheral IV Care [RC] . DIRECTED Sodium Chloride 0.9% [Saline Flush] 10 ml FLUSH ASDIRECTED PRN ED Antiemetic Medication Reflex [OM.PC] Stat Peripheral IV Insertion Adult [OM.PC] Stat 08/10/16 22:15 Sodium Chloride 0.9% [Normal Saline] 1,000 ml IV ASDIRECTED - Assessment/Plan Last 24 Hours: My Active Orders 08/10/16 20:36 Peripheral IV Care [RC] . DIRECTED Sodium Chloride 0.9% [Saline Flush] 10 ml FLUSH ASDIRECTED PRN ED Antiemetic Medication Reflex [OM.PC] Stat Peripheral IV Insertion Adult [OM.PC] Stat 08/10/16 22:15 Sodium Chloride 0.9% [Normal Saline] 1,000 ml IV ASDIRECTED
[2016-08-10] MEDS ORDERED: Sodium Chloride 0.9% 1,000 ML IV SCH (22:15)
== END 2016-08-10 23:33 | disposition home or self-care (01) ==
LOC: JD.ED 20:11
DX: K85.90 Acute pancreatitis without necrosis or infection, unspecified (principal); Z87.01 Personal history of pneumonia (recurrent); E66.9 Obesity, unspecified; K21.9 Gastro-esophageal reflux disease without esophagitis; F17.210 Nicotine dependence, cigarettes, uncomplicated; Z88.0 Allergy status to penicillin; Z88.1 Allergy status to other antibiotic agents; Z91.040 Latex allergy status
CPT/HCPCS: 36415; 80053; 81001; 83690; 84703; 85025; 96361; 96374; 96375; 99284; J1170; J2405; J7040; J7050

== ENCOUNTER 2016-08-24 08:24 | Day surgery (SDC) | payer MEDICAID ==
[~2016-08-24 08:24] MED LIST: Lactated Ringers 1,000 ML IV SCH; Lidocaine 1%/Sod Bicarbonate in NS 8.4% 1 ML Syringe PRN; Sodium Chloride 0.9% 10 ML Syringe FLUSH PRN
--- NOTE | 2016-08-24 09:39 | PCM.PREANE ---
Preanesthetic Assessment - Procedure Proposed Procedure: Diagnostic Esophagogastroduodenoscopy - Anesthesia/Transfusion/Family Hx Anesthesia History: Prior Anesthesia Without Reaction Transfusion History: No Prior Transfusion(s) Type of Transfusion Reactions: Reports: Unknown - Review of Systems General: No Symptoms Pulmonary: No Symptoms Cardiovascular: No Symptoms 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: No symptoms Neurological: No Symptoms Other: Reports: None - Physical Assessment NPO Status Date: 08/23/16 NPO Status Time: 20:00 O2 Sat by Pulse Oximetry: 95 Respiratory Rate: 18 Vital Signs: Last Vital Signs Temp 36.3 C 08/24/16 08:35 Pulse 105 H 08/24/16 08:35 Resp 18 08/24/16 08:35 BP 121/74 08/24/16 08:35 Pulse Ox 95 08/24/16 08:35 Height: 1.55 m Weight: 87.09 kg ASA Class: 2 Mental Status: Alert & Oriented x3 Airway Class: Mallampati = 1 Dentition: Reports: Normal Dentition Thyro-Mental Finger Breadths: 3 Mouth Opening Finger Breadths: 3 ROM/Head Extension: Full Lungs: Clear to auscultation, Normal respiratory effort Cardiovascular: Regular Rate, Regular Rhythm, No Murmurs - Lab Values: Laboratory Last Values Urine HCG, Qual Negative (NEGATIVE) 08/24/16 08:35 - Allergies Allergies/Adverse Reactions: Allergies Allergy/AdvReac Type Severity Reaction Status Date / Time latex Allergy Hives Verified 08/24/16 09:13 Penicillins Allergy Anaphylactic Verified 08/24/16 09:13 Shock vancomycin Allergy Itching Verified 08/24/16 09:13 - Acknowledgements Anesthesia Type Planned: General Anesthesia Pt an Appropriate Candidate for the Planned Anesthesia: Yes Alternatives and Risks of Anesthesia Discussed w Pt/Guardian: Yes Pt/Guardian Understands and Agrees with Anesthesia Plan: Yes PreAnesthesia Questionnaire - Past Health History Medical/Surgical History: Denies Medical/Surgical History HEENT History: Reports: None Cardiovascular History: Reports: None Respiratory History: Reports: Pneumonia, Recurrent Other Respiratory History: yearly pneumonia 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 History: Reports: GERD, Pancreatitis 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: Musculoskeletal History: Reports: None Other Neuro History: bacterial meningitis Psychiatric History: Reports: Depression Endocrine/Metabolic History: Reports: Obesity/BMI 30+ Hematologic History: Reports: None Immunologic History: Reports: None Oncologic (Cancer) History: Reports: None Dermatologic History: Reports: Other (See Below) Other Dermatologic History: tinea versicolor - Infectious Disease History Infectious Disease History: Reports: Meningitis - Past Surgical History Head Surgeries/Procedures: Reports: None HEENT Surgical History: Reports: None Cardiovascular Surgical History: Reports: None GI Surgical History: Reports: None Female Surgical History: Reports: Section Musculoskeletal Surgical History: Reports: None - SUBSTANCE USE Smoking Status *Q: Current Every Day Smoker (1 ppd x 5 yrs. Pt counseled on need to quit smoking for her health and that of her children. Pt offered assistance in quitting if desired. Pt stated she is trying to quit) Tobacco Use Within Last Twelve Months: Cigarettes Second Hand Smoke Exposure: No Days Per Week of Alcohol Use: 0 Recreational Drug Use History: No - HOME MEDS Home Medications: Home Meds Acetaminophen/HYDROcodone [[place] 325-5 MG] 1 - 2 tab PO Q6H PRN #15 tablet 07/28 [Rx] Ondansetron HCl [Zofran] 4 mg PO Q8H PRN #15 tablet 07/28/16 [Rx] Hyoscyamine Sulfate [Levsin-Sl] 1 tab SL TID PRN 08/10/16 [History] - CURRENT (IN HOUSE) MEDS Current Meds: Current Medications Lactated Ringer's (Ringers, Lactated) 1,000 mls @ 125 mls/hr IV ASDIRECTED FUNMI Stop: 08/24/16 23:00 Last Admin: 08/24/16 08:40 Dose: 125 mls/hr Lidocaine/Sodium Bicarbonate (Buffered Lidocaine 1% In Ns 8.4%) 0.25 ml .XX ONETIME PRN PRN Reason: Prior to IV Start Stop: 08/24/16 18:00 Sodium Chloride (Saline Flush) 10 ml FLUSH ASDIRECTED PRN PRN Reason: Keep Vein Open Stop: 08/24/16 18:00
[2016-08-24] MEDS ORDERED: fentaNYL 100 MCG/2 ML SDV ONE (09:53)
[2016-08-24] MEDS ORDERED: Propofol 200 MG/20 ML SDV ONE (09:53)
--- NOTE | 2016-08-24 10:56 | PCM.OPNOTE ---
- General Post-Op/Procedure Note Date of Surgery/Procedure: 08/24/16 Operative Procedure(s): Esophagogastroduodenoscopy with GE junction antrum and gastric biopsies Findings: Normal esophagogastroduodenoscopy endoscopically Pre Op Diagnosis: Dyspepsia Post-Op Diagnosis: Normal endoscopy Anesthesia Technique: MAC, Moderate sedation Primary Surgeon: Clay Lipscomb Pathology: GE junction, body of the stomach, and antral biopsies EBL in mLs: 0 Complications: None Condition: Good Free Text/Narrative:: After adequate IV sedation and analgesia was obtained with monitoring the patient was placed on her left side. Through a bite block a lubricated upper endoscope was inserted into the esophagus and advanced under direct vision to the stomach. Additional air was given here. The pylorus was entered. The scope was advanced to the second part of the duodenum. The second and first portions were endoscopically normal with no inflammatory changes or erosions or ulcers seen. The antrum was unremarkable as well. A random biopsy was taken here for histologic evaluation. In the retroflexed view there was no hiatal hernia. The fundus and cardiac regions were endoscopically normal. The folds are grossly normal as well. Because of her history and I took a couple random biopsies in the body of the stomach. the scope was then withdrawn to the GE junction which was sharp. I took a random biopsy here for evaluation as well. The body of the esophagus was grossly normal. The vocal cords were briefly visualized and were also grossly normal. Air was removed as I finished the procedure which she tolerated well. Office Receptionist photographs taken for the patient and for the record.
--- NOTE | 2016-08-24 10:59 | PCM48HPAN ---
Post Anesthesia Note - EVALUATION WITHIN 48HRS OF ANESTHETIC Vital Signs in Normal Range: Yes Patient Participated in Evaluation: Yes Respiratory Function Stable: Yes Airway Patent: Yes Cardiovascular Function Stable: Yes Hydration Status Stable: Yes Pain Control Satisfactory: Yes Nausea and Vomiting Control Satisfactory: Yes Mental Status Recovered: Yes
[2016-08-24 11:02] VITALS: BP 124/67
== END 2016-08-24 11:22 | disposition home or self-care (01) ==
LOC: JD.SDS 08:24
PROVIDERS: ATTEND Surgery
DX: K31.89 Other diseases of stomach and duodenum (principal); F32.9 Major depressive disorder, single episode, unspecified; Z88.0 Allergy status to penicillin; Z88.1 Allergy status to other antibiotic agents; Z91.040 Latex allergy status; Z79.899 Other long term (current) drug therapy; Z87.891 Personal history of nicotine dependence
CPT/HCPCS: 43239; 81025; 88305; J3010; J7120; J2704

== ENCOUNTER 2016-11-14 07:25 | Emergency (ER) | payer MEDICAID ==
[2016-11-14 07:37] VITALS: BP 112/78
[2016-11-14] MEDS ORDERED: Sodium Chloride 0.9% 10 ML Syringe FLUSH PRN (08:09)
[2016-11-14] MEDS ORDERED: HYDROmorphone 0.5 MG/0.5 ML Syringe IVPUSH ONE ×2 (08:09→09:27)
[2016-11-14] MEDS ORDERED: Sodium Chloride 0.9% 500 ML IV ONE (08:10)
[2016-11-14] MEDS ORDERED: Ondansetron 4 MG/2 ML SDV IVPUSH ONE (08:10)
--- NOTE | 2016-11-14 09:17 | EDM.PDOC ---
ED HPI GENERAL MEDICAL PROBLEM - General Chief Complaint: Abdominal Pain Stated Complaint: UPPER ABD PAIN Time Seen by Provider: 11/14/16 07:43 Source of Information: Reports: Patient, RN Notes Reviewed - History of Present Illness INITIAL COMMENTS - FREE TEXT/NARRATIVE: 21 year old female had onset of abdominal pain last evening about 13 hours ago. She had just finished eating supper. Onset of upper abdominal pain and right upper quadrant pain radiating to the right flank. She did have some nausea with this but no vomiting. She has had Frequent attacks like this in the past but usually the pain will just last an hour or 2 and then go away. this has Been fairly persistent through the night making it difficult to sleep. Of note she also has had several episodes of watery diarrhea over the last 4-5 hours. No vomiting. States she does have history of what is thought to be gallbladder disease. Prior testing of her gallbladder has "always been negative". Also of note she is about 13 weeks 2 para 1. Epigastric Pain Score (Numeric/FACES): 8 - Related Data Allergies Allergy/AdvReac Type Severity Reaction Status Date / Time latex Allergy Hives Verified 11/14/16 07:33 Penicillins Allergy Anaphylactic Verified 11/14/16 07:33 Shock vancomycin Allergy Itching Verified 11/14/16 07:33 Home Meds: Home Meds . 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: Musculoskeletal History: Reports: None Other Neuro History: bacterial meningitis Psychiatric History: Reports: Depression Endocrine/Metabolic History: Reports: Obesity/BMI 30+ Hematologic History: Reports: None Immunologic History: Reports: None Oncologic (Cancer) History: Reports: None Dermatologic History: Reports: Other (See Below) Other Dermatologic History: tinea versicolor - Infectious Disease History Infectious Disease History: Reports: Meningitis - Past Surgical History Head Surgeries/Procedures: Reports: None HEENT Surgical History: Reports: None Cardiovascular Surgical History: Reports: None GI Surgical History: Reports: None Female Surgical History: Reports: Section Musculoskeletal Surgical History: Reports: None Social & Family History - Family History Family Medical History: Noncontributory - Tobacco Use Smoking Status *Q: Never Smoker Years of Tobacco use: 3 Packs/Tins Daily: 0.5 Used Tobacco, but Quit: Yes Month Tobacco Last Used: 05/2015 Second Hand Smoke Exposure: No - Caffeine Use Caffeine Use: Reports: None - Alcohol Use Days Per Week of Alcohol Use: 0 - Recreational Drug Use Recreational Drug Use: No ED ROS GENERAL - Review of Systems Review Of Systems: See Below Constitutional: Denies: Fever, Chills, Diaphoresis HEENT: Reports: No Symptoms Respiratory: Denies: Shortness of Breath, Pleuritic Chest Pain Cardiovascular: Denies: Chest Pain GI/Abdominal: Reports: Abdominal Pain, Diarrhea, Nausea. Denies: Vomiting Musculoskeletal: Reports: No Symptoms Skin: Reports: No Symptoms Neurological: Reports: No Symptoms ED EXAM, GI/ABD - Physical Exam Exam: See Below General Appearance: Alert, Mild Distress Eyes: Bilateral: Normal Appearance Throat/Mouth: Normal Inspection, Normal Oropharynx Neck: Supple, Full Range of Motion Respiratory/Chest: No Respiratory Distress, Lungs Clear, Normal Breath Sounds Cardiovascular: Regular Rate, Rhythm GI/Abdominal Exam: Tender (Mild to moderate diffuse tenderness of right upper quadrant upper mid abdomen, mild tenderness remainder of abdomen). No: Guarding , Rebound Back Exam: Normal Inspection. No: CVA Tenderness (L), CVA Tenderness (R) Extremities: Normal Inspection, Normal Range of Motion Neurological: Alert, Oriented, No Motor/Sensory Deficits Skin Exam: Warm, Dry, Intact Course - Vital Signs Last Recorded V/S: Last Vital Signs Temp 97.0 F 11/14/16 07:34 Pulse 88 11/14/16 07:34 Resp 18 11/14/16 07:34 BP 112/78 11/14/16 07:34 Pulse Ox 100 11/14/16 07:34 - Orders/Labs/Meds Orders: Active Orders 24 hr Category Date Time Status Peripheral IV Care [RC] . DIRECTED Care 11/14/16 08:09 Active Peripheral IV Insertion Adult [OM.PC] Stat Oth 11/14/16 08:09 Ordered Labs: Laboratory Tests 11/14/16 11/14/16 11/14/16 Range/Units 08:50 08:50 08:50 WBC 13.16 H (3.98-10.04) K/mm3 RBC 4.61 (3.98-5.22) M/mm3 Hgb 12.8 (11.2-15.7) gm/L Hct 38.8 (34.1-44.9) % MCV 84.2 (79.4-94.8) fl MCH 27.8 (25.6-32.2) pg MCHC 33.0 (32.2-35.5) g/dl RDW Std Deviation 49.7 H (36.4-46.3) fL Plt Count 273 (182-369) K/mm3 MPV 10.2 (9.4-12.3) fl Neut % (Auto) 76.6 H (34.0-71.1) % Lymph % (Auto) 17.2 L (19.3-51.7) % [place] % (Auto) 4.0 L (4.7-12.5) % Eos % (Auto) 1.8 (0.7-5.8) Baso % (Auto) 0.2 (0.1-1.2) % Neut # (Auto) 10.08 H (1.56-6.13) K/mm3 Lymph # (Auto) 2.27 (1.18-3.74) K/mm3 [place] # (Auto) 0.52 H (0.24-0.36) K/mm3 Eos # (Auto) 0.24 (0.04-0.36) K/mm3 Baso # (Auto) 0.02 (0.01-0.08) K/mm3 Sodium 138 (136-145) mEq/L Potassium 4.0 (3.5-5.1) mEq/L Chloride 103 (98-107) mEq/L Carbon Dioxide 24 (21-32) mEq/L Anion Gap 15.0 (5-15) BUN 5 L (7-18) mg/dL Creatinine 0.5 L (0.55-1.02) mg/dL Est Cr Clr Drug Dosing TNP Estimated GFR (MDRD) > 60 (>60) mL/min BUN/Creatinine Ratio 10.0 L (14-18) Glucose 80 (74-106) mg/dL Calcium 8.8 (8.5-10.1) mg/dL Total Bilirubin 0.3 (0.2-1.0) mg/dL AST 11 L (15-37) U/L ALT 17 (14-59) U/L Alkaline Phosphatase 101 (46-116) U/L Total Protein 7.1 (6.4-8.2) g/dl Albumin 3.1 L (3.4-5.0) g/dl Globulin 4.0 gm/dL Albumin/Globulin Ratio 0.8 L (1-2) Lipase 106 (73-393) U/L Meds: Medications Discontinued Medications Generic Name Dose Route Start Last Admin Trade Name Valarie PRN Reason Stop Dose Admin Hydromorphone HCl 0.25 mg 11/14/16 08:09 11/14/16 08:55 Dilaudid IVPUSH 11/14/16 08:10 0.25 mg ONETIME ONE Administration Hydromorphone HCl 0.25 mg 11/14/16 09:27 11/14/16 09:32 Dilaudid IVPUSH 11/14/16 09:28 0.25 mg ONETIME ONE Administration Sodium Chloride 500 mls @ 999 mls/hr 11/14/16 08:10 11/14/16 08:52 Normal Saline IV 11/14/16 08:40 999 mls/hr .BOLUS ONE Administration Ondansetron HCl 2 mg 11/14/16 08:10 11/14/16 08:55 Zofran IVPUSH 11/14/16 08:11 2 mg ONETIME ONE Administration Sodium Chloride 10 ml 11/14/16 08:09 11/14/16 08:55 Saline Flush FLUSH 10 ml ASDIRECTED PRN Administration Keep Vein Open - Re-Assessments/Exams Free Text/Narrative Re-Assessment/Exam: 11/14/16 14:28. labs all came back relatively normal. Patient does feel better after IV fluid, Dilaudid 0.25 mg 2. Discharge instructions as documented Departure - Departure Time of Disposition: 10:20 Disposition: Home, Self-Care 01 Condition: Fair Clinical Impression: Abdominal pain Qualifiers: Abdominal location: upper abdomen, unspecified Qualified Code(s): R10.10 - Upper abdominal pain, unspecified Diarrhea Qualifiers: Diarrhea type: unspecified type Qualified Code(s): R19.7 - Diarrhea, unspecified - Discharge Information Instructions: Diarrhea, Adult, Abdominal Pain, Adult Referrals: Malinda Larios PA [Primary Care Provider] - Forms: ED Department Discharge Additional Instructions: clear liquids until this evening, than very careful bland diet as tolerated, begin probiotic and take that twice daily for about the next 5 days, follow-up clinic in about 3-4 days for recheck, call for appointment, return to ED as needed if symptoms worsening in any way - My Orders Last 24 Hours: My Active Orders 11/14/16 08:09 Peripheral IV Care [RC] . DIRECTED Peripheral IV Insertion Adult [OM.PC] Stat - Assessment/Plan Last 24 Hours: My Active Orders 11/14/16 08:09 Peripheral IV Care [RC] . DIRECTED Peripheral IV Insertion Adult [OM.PC] Stat
== END 2016-11-14 10:30 | disposition home or self-care (01) ==
LOC: JD.ED 07:25
DX: O99.89 Other specified diseases and conditions complicating pregnancy, childbirth and the puerperium (principal); O99.211 Obesity complicating pregnancy, first trimester; R10.11 Right upper quadrant pain; R19.7 Diarrhea, unspecified; E66.9 Obesity, unspecified; K21.9 Gastro-esophageal reflux disease without esophagitis; Z87.891 Personal history of nicotine dependence; Z91.040 Latex allergy status; Z88.0 Allergy status to penicillin; Z3A.13 13 weeks gestation of pregnancy
CPT/HCPCS: 36415; 80053; 83690; 85025; 96361; 96374; 96375; 96376; 99284; J1170; J2405; J7040; J7050

== ENCOUNTER 2016-11-23 17:04 | Emergency (ER) | payer MEDICAID ==
[2016-11-23 17:17] VITALS: BP 121/72
[2016-11-23] MEDS ORDERED: Sodium Chloride 0.9% 10 ML Syringe FLUSH PRN (17:51)
[2016-11-23] MEDS ORDERED: HYDROmorphone 0.5 MG/0.5 ML Syringe IVPUSH ONE ×2 (17:51→19:09)
--- NOTE | 2016-11-23 17:59 | EDM.PDOC ---
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 Upon going to the bathroom she found large amounts of blood with clots and tissue present. She developed lower nominal cramping that radiated into her back bilaterally. She contacted her GREENHOUSE MANAGER specialist office and was instructed to come to the ED. Since experiencing this heavy flow blood she saturated only one pad. Pain to the lower abdomen is mild in nature. She has no history of spontaneous . history 2 para 1. She denies any fever/chills, nausea/vomiting, dysuria, lightheadedness, or any additional complaints. Past medical history includes pancreatitis 2 unknown cause. She is on no medications. Denies smoking, alcohol use, recreational drug use. Ultrasound was obtained by Dr. Gan revealing a intrauterine single gestational sac. Right Abdomen Pain Score (Numeric/FACES): 4 - Related Data Allergies Allergy/AdvReac Type Severity Reaction Status Date / Time latex Allergy Hives Verified 11/23/16 17:17 Penicillins Allergy Anaphylactic Verified 11/23/16 17:17 Shock vancomycin Allergy Itching Verified 11/23/16 17:17 Home Meds: Home Meds . 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: Musculoskeletal History: Reports: None Other Neuro History: bacterial meningitis Psychiatric History: Reports: Depression Endocrine/Metabolic History: Reports: Obesity/BMI 30+ Hematologic History: Reports: None Immunologic History: Reports: None Oncologic (Cancer) History: Reports: None Dermatologic History: Reports: Other (See Below) Other Dermatologic History: tinea versicolor - Infectious Disease History Infectious Disease History: Reports: Meningitis - Past Surgical History Head Surgeries/Procedures: Reports: None HEENT Surgical History: Reports: None Cardiovascular Surgical History: Reports: None GI Surgical History: Reports: None Female Surgical History: Reports: Section Musculoskeletal Surgical History: Reports: None Social & Family History - Family History Family Medical History: Noncontributory - Tobacco Use Smoking Status *Q: Former Smoker Years of Tobacco use: 3 Packs/Tins Daily: 0.5 Used Tobacco, but Quit: Yes Month Tobacco Last Used: 15 weeks ago Second Hand Smoke Exposure: No - Caffeine Use Caffeine Use: Reports: None - Alcohol Use Days Per Week of Alcohol Use: 0 - Recreational Drug Use Recreational Drug Use: No ED ROS GENERAL - Review of Systems Review Of Systems: See Below Constitutional: Denies: Fever, Chills, Decreased Appetite Respiratory: Reports: No Symptoms Cardiovascular: Reports: No Symptoms GI/Abdominal: Reports: Abdominal Pain (Suprapubic). Denies: Constipation, Diarrhea, Nausea, Vomiting : Reports: Discharge (Vaginal bleeding with clots and tissue). Denies: Dysuria Musculoskeletal: Reports: Back Pain (Low back pain bilaterally) ED EXAM - Physical Exam Exam: See Below Exam Limited By: No Limitations General Appearance: Alert, WD/WN, No Apparent Distress Ears: Hearing Grossly Normal Nose: Normal Inspection Throat/Mouth: Normal Voice, No Airway Compromise Neck: Normal Inspection, Supple Respiratory/Chest: No Respiratory Distress, Lungs Clear, Normal Breath Sounds, No Accessory Muscle Use Cardiovascular: Normal Peripheral Pulses, Regular Rate, Rhythm GI/Abdominal Exam: Normal Bowel Sounds, Soft, No Organomegaly, No Distention, Tender (Suprapubic region) (Female) Exam: Cervical Dilatation, Cervical Discharge (Blood), Cervical Fluid (Blood), Vaginal Bleeding. No: Vaginal Lesions, Vaginal Tears Back Exam: Normal Inspection Neurological: Alert, Oriented, CN II-XII Intact, Normal Cognition, No Motor/ Sensory Deficits Psychiatric: Normal Affect, Normal Mood Skin Exam: Warm, Dry, Intact Course - Vital Signs Last Recorded V/S: Last Vital Signs Temp 97.8 F 11/23/16 17:14 Pulse 96 11/23/16 17:14 Resp 18 11/23/16 17:14 BP 121/72 11/23/16 17:14 Pulse Ox 98 11/23/16 17:14 - Orders/Labs/Meds Orders: Active Orders 24 hr Category Date Time Status Peripheral IV Care [RC] . DIRECTED Care 11/23/16 17:52 Active Peripheral IV Insertion Adult [OM.PC] Routine Oth 11/23/16 17:51 Ordered Labs: Laboratory Tests 11/23/16 11/23/16 11/23/16 Range/Units 17:53 17:53 17:53 WBC 15.45 H (3.98-10.04) K/mm3 RBC 4.76 (3.98-5.22) M/mm3 Hgb 13.3 (11.2-15.7) gm/L Hct 39.7 (34.1-44.9) % MCV 83.4 (79.4-94.8) fl MCH 27.9 (25.6-32.2) pg MCHC 33.5 (32.2-35.5) g/dl RDW Std Deviation 47.7 H (36.4-46.3) fL Plt Count 294 (182-369) K/mm3 MPV 10.5 (9.4-12.3) fl Neut % (Auto) 73.2 H (34.0-71.1) % Lymph % (Auto) 20.5 (19.3-51.7) % [place]pine % (Auto) 4.2 L (4.7-12.5) % Eos % (Auto) 1.7 (0.7-5.8) Baso % (Auto) 0.1 (0.1-1.2) % Neut # (Auto) 11.31 H (1.56-6.13) K/mm3 Lymph # (Auto) 3.16 (1.18-3.74) K/mm3 Alpine # (Auto) 0.65 H (0.24-0.36) K/mm3 Eos # (Auto) 0.27 (0.04-0.36) K/mm3 Baso # (Auto) 0.02 (0.01-0.08) K/mm3 PT 9.8 (8.0-13.0) SECONDS INR 0.90 APTT 27 (22-36) SECONDS Sodium 139 (136-145) mEq/L Potassium 3.7 (3.5-5.1) mEq/L Chloride 104 (98-107) mEq/L Carbon Dioxide 21 (21-32) mEq/L Anion Gap 17.7 H (5-15) BUN 5 L (7-18) mg/dL Creatinine 0.5 L (0.55-1.02) mg/dL Est Cr Clr Drug Dosing 128.92 mL/min Estimated GFR (MDRD) > 60 (>60) mL/min BUN/Creatinine Ratio 10.0 L (14-18) Glucose 79 (74-106) mg/dL Calcium 9.0 (8.5-10.1) mg/dL Total Bilirubin 0.2 (0.2-1.0) mg/dL AST 13 L (15-37) U/L ALT 17 (14-59) U/L Alkaline Phosphatase 114 (46-116) U/L Total Protein 7.8 (6.4-8.2) g/dl Albumin 3.4 (3.4-5.0) g/dl Globulin 4.4 gm/dL Albumin/Globulin Ratio 0.8 L (1-2) HCG, Quant 14505.0 mIU/mL Urine Color (Yellow) Urine Appearance (Clear) Urine pH (5.0-8.0) Ur Specific [place] (1.005-1.030) Urine Protein (Negative) Urine Glucose (UA) (Negative) Urine Ketones (Negative) Urine Occult Blood (Negative) Urine Nitrite (Negative) Urine Bilirubin (Negative) Urine Urobilinogen (0.2-1.0) Ur Leukocyte Esterase (Negative) Urine RBC (0-5) /hpf Urine WBC (0-5) /hpf Ur Epithelial Cells (0-5) /hpf Urine Bacteria (FEW) /hpf Urine Mucus (FEW) /hpf Blood Type 11/23/16 11/23/16 Range/Units 17:53 19:30 WBC (3.98-10.04) K/mm3 RBC (3.98-5.22) M/mm3 Hgb (11.2-15.7) gm/L Hct (34.1-44.9) % MCV (79.4-94.8) fl MCH (25.6-32.2) pg MCHC (32.2-35.5) g/dl RDW Std Deviation (36.4-46.3) fL Plt Count (182-369) K/mm3 MPV (9.4-12.3) fl Neut % (Auto) (34.0-71.1) % Lymph % (Auto) (19.3-51.7) % Alpine % (Auto) (4.7-12.5) % Eos % (Auto) (0.7-5.8) Baso % (Auto) (0.1-1.2) % Neut # (Auto) (1.56-6.13) K/mm3 Lymph # (Auto) (1.18-3.74) K/mm3 Alpine # (Auto) (0.24-0.36) K/mm3 Eos # (Auto) (0.04-0.36) K/mm3 Baso # (Auto) (0.01-0.08) K/mm3 PT (8.0-13.0) SECONDS INR APTT (22-36) SECONDS Sodium (136-145) mEq/L Potassium (3.5-5.1) mEq/L Chloride (98-107) mEq/L Carbon Dioxide (21-32) mEq/L Anion Gap (5-15) BUN (7-18) mg/dL Creatinine (0.55-1.02) mg/dL Est Cr Clr Drug Dosing mL/min Estimated GFR (MDRD) (>60) mL/min BUN/Creatinine Ratio (14-18) Glucose (74-106) mg/dL Calcium (8.5-10.1) mg/dL Total Bilirubin (0.2-1.0) mg/dL AST (15-37) U/L ALT (14-59) U/L Alkaline Phosphatase (46-116) U/L Total Protein (6.4-8.2) g/dl Albumin (3.4-5.0) g/dl Globulin gm/dL Albumin/Globulin Ratio (1-2) HCG, Quant mIU/mL Urine Color Yellow (Yellow) Urine Appearance Clear (Clear) Urine pH 6.0 (5.0-8.0) Ur Specific [place] 1.020 (1.005-1.030) Urine Protein Negative (Negative) Urine Glucose (UA) Negative (Negative) Urine Ketones 3+ H (Negative) Urine Occult Blood 2+ H (Negative) Urine Nitrite Negative (Negative) Urine Bilirubin Negative (Negative) Urine Urobilinogen 0.2 (0.2-1.0) Ur Leukocyte Esterase Trace H (Negative) Urine RBC 0-5 (0-5) /hpf Urine WBC 0-5 (0-5) /hpf Ur Epithelial Cells 0-5 (0-5) /hpf Urine Bacteria Few (FEW) /hpf Urine Mucus Few (FEW) /hpf Blood Type O POSITIVE Meds: Medications Discontinued Medications Generic Name Dose Route Start Last Admin Trade Name Freq PRN Reason Stop Dose Admin Hydromorphone HCl 0.25 mg 11/23/16 17:51 11/23/16 18:30 Dilaudid IVPUSH 11/23/16 17:52 0.25 mg ONETIME ONE Administration Hydromorphone HCl 0.25 mg 11/23/16 19:09 11/23/16 19:13 Dilaudid IVPUSH 11/23/16 19:10 0.25 mg ONETIME ONE Administration Sodium Chloride 1,000 mls @ 150 mls/hr 11/23/16 18:15 11/23/16 19:21 Normal Saline IV 999 mls/hr ASDIRECTED FUNMI Infusion Sodium Chloride 1,000 mls @ 999 mls/hr 11/23/16 19:20 Normal Saline IV 11/23/16 20:20 ONETIME ONE Sodium Chloride 10 ml 11/23/16 17:51 11/23/16 18:31 Saline Flush FLUSH 10 ml ASDIRECTED PRN Administration Keep Vein Open - Re-Assessments/Exams Free Text/Narrative Re-Assessment/Exam: IV established with blood work obtained. Dilaudid 0.25 mg IVP and IVF ordered. Blood work includes CBC, chem 14, hCG quantitative, coag studies, ABO/Rh type. Labs reviewed: WBC 15.45, HGB13.3, Platelet 294, N% 73.2, N# 11.31, Coag normal , sodium 139, potassium 3.7, AG 17.7, creatinine 0.5, hCG quantitative is pending. HCG quantitative:[id number] Patient's cramping is worsening. Ordered Dilaudid 0.25 mg IVP for pain. Ordered additional IV bolus of fluid. Awaiting results of OB pelvic ultrasound. Ultrasound impression: Single intrauterine fetus. Dates as noted above. Equivocal small fibroid measuring 2.3 cm. No complicating process seen by ultrasound. No etiology is identified for the patient reported bleeding. For further details of the exam place a report. 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 If pain is manageable patient can go home and see him in the clinic tomorrow morning. Told patient to return back to the ED if she experiences worsening pain or bleeding. In addition request patient refrain from sexual intercourse, shower only/no bath, pelvic rest, and call tomorrow morning to make an appointment. 11/23/16 21:23 UA negative patient will be discharged home. Departure - Departure Time of Disposition: 21:23 Disposition: Home, Self-Care 01 Condition: Good (single uterine bleeding), Fair Clinical Impression: Vaginal bleeding before 22 weeks gestation, Bilateral lower abdominal cramping - Discharge Information Instructions: Abdominal Pain, Adult, [id number], Vaginal Bleeding During , Second Trimester Referrals: Fabian Gan MD [Primary Care Provider] - Forms: ED Department Discharge Additional Instructions: As discussed contact Dr. Gan's clinic tomorrow morning and speak with Tamiko at [phone] to schedule appointment to be seen tomorrow. Take Tylenol for any discomfort. Apply warm compresses to affected area. Refrain from sexual intercourse. If you develop worsening pain or increased vaginal bleeding please return back to ED for reevaluation. - My Orders Last 24 Hours: My Active Orders 11/23/16 17:51 Peripheral IV Insertion Adult [OM.PC] Routine 11/23/16 17:52 Peripheral IV Care [RC] . DIRECTED - Assessment/Plan Last 24 Hours: My Active Orders 11/23/16 17:51 Peripheral IV Insertion Adult [OM.PC] Routine 11/23/16 17:52 Peripheral IV Care [RC] . DIRECTED
[2016-11-23] MEDS ORDERED: Sodium Chloride 0.9% 1,000 ML IV SCH (18:15)
[2016-11-23] MEDS ORDERED: Sodium Chloride 0.9% 1,000 ML IV ONE (19:20)
--- NOTE | 2016-11-23 19:29 | US ---
Addendum: Hypoechoic area felt to represent a fibroid on previous report could represent a small subchorionic blood clot. No discrete findings of placental abruption are otherwise seen. --- Addendum1 above dictated on [11/24/2016 10:33] by [Aisha Miller, Srinivasan Amaro] --- --- Addendum1 above signed on [11/24/2016 10:35] by [Aisha Miller Hilton J.] --- --- Original report below dictated on [11/23/2016 19:21] by [Aisha Miller, Srinivasan Amaro] --- --- Original report below signed on [11/23/2016 19:26] by [Aisha Miller Hilton J.] --- First trimester obstetrical ultrasound: Multiple real-time images were obtained transabdominally. Comparison: Previous study of 10/12/16. Dates: LMP: ? Current ultrasound: [facility]IE 05/19/17, gestational age 14 weeks 5 days Earlier ultrasound (10/12/16): [facility] 05/24/17, gestational age 14 weeks 0 days Single intrauterine fetus is seen. Amniotic fluid volume is normal. Equivocal fibroid within the uterine fundus is seen measuring 2.3 cm. No subchorionic hemorrhage is seen. Measurements: BPD: 2.82 cm - 15 weeks 1 day Head circumference: 10.38 cm - 15 weeks 0 days Abdominal circumference: 8.18 cm - 14 weeks 4 days Femur length: 1.47 cm - 14 weeks 3 days Estimated weight: 99 g (0 lbs. 3 oz.), estimated weight at the 23rd percentile for age by current ultrasound Heart rate: 163 BPM Cervical length: 3.2 cm, closed Maternal ovaries: Unremarkable Impression: 1. Single intrauterine fetus. Dates as noted above. 2. Equivocal small fibroid measuring 2.3 cm (not a definite finding). 3. No complicating process is seen by ultrasound. No etiology is identified for the patient's reported bleeding. Diagnostic code #2 --- Addendum1 signed ---
== END 2016-11-23 21:33 | disposition home or self-care (01) ==
LOC: JD.ED 17:04
DX: O46.92 Antepartum hemorrhage, unspecified, second trimester (principal); O99.212 Obesity complicating pregnancy, second trimester; R55 Syncope and collapse; Z91.040 Latex allergy status; Z88.8 Allergy status to other drugs, medicaments and biological substances; Z87.891 Personal history of nicotine dependence; Z3A.22 22 weeks gestation of pregnancy; Z88.0 Allergy status to penicillin
CPT/HCPCS: 36415; 76801; 80053; 81001; 84702; 85025; 85610; 85730; 86900; 86901; 96361; 96374; 96376; 99284; J1170; J7040; J7050

== ENCOUNTER 2017-05-13 19:22 | Inpatient (IN) | payer MEDICAID ==
[2017-05-13] MEDS ORDERED: Metoclopramide 10 MG/2 ML SDV IVPUSH ONE (19:42)
[2017-05-13] MEDS ORDERED: Sodium Chloride 0.9% 10 ML Syringe FLUSH PRN (19:42)
[2017-05-13] MEDS ORDERED: Citric Acid/Sodium Citrate Solution 30 ML Cup PO ONE (19:42)
[2017-05-13] MEDS ORDERED: Clindamycin Phosphate 900 MG in Sodium Chloride 0.9% 100 ML IV ONE (19:42)
--- NOTE | 2017-05-13 19:59 | PCM.LDHP ---
L&D History of Present Illness - General Date of Service: 05/13/17 Admit Problem/Dx: Patient Status Order with Admit Dx/Problem 05/13/17 19:47 Patient Status [ADT] Routine Admission Diagnosis/Problem Admission Diagnosis/Problem Labor established Source of Information: Patient History Limitations: Reports: No Limitations - History of Present Illness Introduction:: 21 year old female at 38w4d scheduled for repeat section this coming Monday presents with SROM clear fluid at [address] Gan without complications other than prior and GBS positive - Related Data Allergies/Adverse Reactions: Allergies Allergy/AdvReac Type Severity Reaction Status Date / Time latex Allergy Hives Verified 11/23/16 17:17 Penicillins Allergy Anaphylactic Verified 11/23/16 17:17 Shock vancomycin Allergy Itching Verified 11/23/16 17:17 Home Medications: Home Meds . 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: Musculoskeletal History: Reports: None Other Neuro History: bacterial meningitis as a child Psychiatric History: Reports: Depression Endocrine/Metabolic History: Reports: Obesity/BMI 30+ Hematologic History: Reports: Anemia Immunologic History: Reports: None Oncologic (Cancer) History: Reports: None Dermatologic History: Reports: Other (See Below) Other Dermatologic History: tinea versicolor - Infectious Disease History Infectious Disease History: Reports: Meningitis - Past Surgical History GI Surgical History: Reports: Other (See Below) Other GI Surgeries/Procedures: EDG 2017 Female Surgical History: Reports: Section Social & Family History - Family History Family Medical History: Noncontributory - Tobacco Use Smoking Status *Q: Former Smoker Years of Tobacco use: 3 Packs/Tins Daily: 0.5 Used Tobacco, but Quit: Yes Month/Year Tobacco Last Used: 15 weeks ago Second Hand Smoke Exposure: No - Caffeine Use Caffeine Use: Reports: None - Alcohol Use Days Per Week of Alcohol Use: 0 - Recreational Drug Use Recreational Drug Use: No H&P Review of Systems - Review of Systems: Review Of Systems: See Below General: Reports: No Symptoms HEENT: Reports: No Symptoms Pulmonary: Reports: No Symptoms Cardiovascular: Reports: No Symptoms 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: Reports: No Symptoms Genitourinary: Reports: Other Musculoskeletal: Reports: No Symptoms Skin: Reports: No Symptoms Psychiatric: Reports: No Symptoms Neurological: Reports: No Symptoms Hematologic/Lymphatic: Reports: No Symptoms Immunologic: Reports: No Symptoms L&D Exam - Exam Exam: See Below - Vital Signs Vital Signs: Last Vital Signs Temp 36.3 C 05/13/17 19:43 Pulse 93 05/13/17 19:43 Resp 18 05/13/17 19:43 BP 118/62 05/13/17 19:43 Pulse Ox 99 05/13/17 19:43 - OB Specific Movement: Active Heart Tones: Present Heart Rate (FHR) Variability: Moderate (6-25 bmp) Presentation: Vertex - Alvarez Score Alvarez Score Cervix Position: Midposition Avlarez Score Consistency: Soft Alvarez Score Effacement: 0-30% Alvarez Score Dilation: 1-2 cm Alvarez Score 's Station: -3 Alvarez Score Total: 4 - Exam General: Alert, Oriented HEENT: PERRLA, Conjunctiva Clear, EACs Clear, EOMI, Hearing Intact, Mucosa Moist & Portis, Nares Patent, Normal Nasal Septum, Posterior Pharynx Clear, TMs Clear Neck: Supple, Trachea Midline Lungs: Clear to Auscultation, Normal Respiratory Effort Cardiovascular: Regular Rate, Regular Rhythm GI/Abdominal Exam: Normal Bowel Sounds, Soft, Non-Tender, No Organomegaly, No Distention, No Abnormal Bruit, No Mass, Pelvis Stable Rectal Exam: Normal Exam Genitourinary: Normal external exam, Normal bimanual exam, Normal speculum exam Back Exam: Normal Inspection, Full Range of Motion Extremities: Normal Inspection, Normal Range of Motion, Non-Tender, No Pedal Edema, Normal Capillary Refill Skin: Warm, Dry, Intact Neurological: Cranial Nerves Intact, Reflexes Equal Bilateral Psychiatric: Alert, Normal Affect, Normal Mood Problem List Initiated/Reviewed/Updated: Yes Orders Last 24hrs: Active Orders 24 hr Category Date Time Status Patient Status [ADT] Routine ADT 05/13/17 19:47 Ordered Communication Order [RC] ROUTINE Care 05/13/17 19:47 Ordered Heart Tones [RC] PER UNIT ROUTINE Care 05/13/17 19:47 Ordered Peripheral IV Care [RC] . DIRECTED Care 05/13/17 19:47 Ordered Procedure Site Prep Instruct [RC] ASDIRECTED Care 05/13/17 19:47 Ordered Verify Patient Consent Obtain [RC] PER UNIT ROUTINE Care 05/13/17 19:47 Ordered Vital Signs [RC] PFP Care 05/13/17 19:47 Ordered CBC W/O DIFF,HEMOGRAM [HEME] Stat Lab 05/13/17 19:42 Ordered TYPE AND SCREEN [BBK] Routine Lab 05/13/17 19:47 Ordered Citric Acid/Sodium Citrate [Bicitra Solution] Med 05/13/17 19:42 Once 30 ml PO ONETIME ONE Clindamycin Phosphate [Cleocin] 900 mg Med 05/13/17 19:42 Ordered Sodium Chloride 0.9% [Normal Saline] 100 ml IV ONETIME Gentamicin 470 mg Med 05/13/17 19:42 Ordered Sodium Chloride 0.9% [Normal Saline] 100 ml IV ONETIME Lactated Ringers @ 125 MLS/HR(1000ml) Med 05/13/17 19:45 Ordered Lactated Ringers [Ringers, Lactated] 1,000 ml IV ASDIRECTED Metoclopramide [Reglan] Med 05/13/17 19:42 Once 10 mg IVPUSH ONETIME ONE Sodium Chloride 0.9% [Saline Flush] Med 05/13/17 19:42 Ordered 10 ml FLUSH ASDIRECTED PRN Peripheral IV Insertion Adult [OM.PC] Routine Oth 05/13/17 19:47 Ordered Schedule Procedure [COMM] Per Unit Routine Oth 05/13/17 19:47 Ordered Resuscitation Status Routine Resus Stat 05/13/17 19:42 Ordered Assessment/Plan Comment:: Prior . Desires repeat. Proceed with RCS.
[2017-05-13] MEDS: Lactated Ringers 1,000 ML IV SCH ×2 (20:05→21:06)
[2017-05-13] MEDS ORDERED: Bupivacaine 0.5% 30 ML SDV ONE (20:41)
[2017-05-13] MEDS ORDERED: Gentamicin 40 MG/ML 2 ML Vial ONE (21:02)
[2017-05-13] MEDS ORDERED: Morphine PF 10 MG/10 ML SDV ONE (21:26)
[2017-05-13] MEDS ORDERED: Bupivacaine 0.75%/D5W 2 ML Amp ONE (21:34)
[2017-05-13] MEDS ORDERED: Oxytocin 10 Units/1 ML SDV ONE (21:46)
[2017-05-13] MEDS ORDERED: Ketorolac 30 MG/ML SDV ONE (22:14)
[2017-05-13] MEDS ORDERED: diphenhydrAMINE 50 MG/ML SDV IVPUSH PRN ×2 (22:20→23:10)
--- NOTE | 2017-05-13 22:22 | PCM.POSTAN ---
POST ANESTHESIA ASSESSMENT - MENTAL STATUS Mental Status: Alert, Oriented - VITAL SIGNS Pulse Rate: 82 SaO2: 99 Resp Rate: 12 Blood Pressure: 95/44 Temperature: 36.7 C - RESPIRATORY Respiratory Status: Respiratory Rate WNL, Airway Patent, O2 Saturation Stable, Supplemental Oxygen - CARDIOVASCULAR CV Status: Pulse Rate WNL, Blood Pressure Stable - GASTROINTESTINAL GI Status: No Symptoms - PAIN Pain Score: 0 - POST OP HYDRATION Hydration Status: Adequate & Stable - OBSERVATIONS Free Text/Narrative:: no anesthesia complications noted
[2017-05-13] MEDS ORDERED: Lactated Ringers 1,000 ML ONE ×2 (22:23→22:24)
--- NOTE | 2017-05-13 22:23 | PCM.PREANE ---
Preanesthetic Assessment - Anesthesia/Transfusion/Family Hx Anesthesia History: Prior Anesthesia Without Reaction Family History of Anesthesia Reaction: No Transfusion History: No Prior Transfusion(s) Type of Transfusion Reactions: Reports: Unknown - Review of Systems General: No Symptoms Pulmonary: No Symptoms Cardiovascular: No Symptoms 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: No Symptoms Neurological: No Symptoms Other: Reports: None - Physical Assessment NPO Status Date: 05/13/17 NPO Status Time: 16:20 Pulse: 82 O2 Sat by Pulse Oximetry: 99 Respiratory Rate: 12 Blood Pressure: 95/44 Temperature: 36.7 C Vital Signs: Last Vital Signs Temp 36.7 C 05/13/17 22:22 Pulse 82 05/13/17 22:22 Resp 12 05/13/17 22:22 BP 95/44 L 05/13/17 22:22 Pulse Ox 99 05/13/17 22:22 Height: 1.52 m Weight: 93.894 kg ASA Class: 2E Mental Status: Alert & Oriented x3 Airway Class: Mallampati = 2 Dentition: Reports: Normal Dentition Thyro-Mental Finger Breadths: 2 Mouth Opening Finger Breadths: 2 ROM/Head Extension: Full Lungs: Clear to Auscultation, Normal Respiratory Effort Cardiovascular: Regular Rate, Regular Rhythm - Lab Values: Laboratory Last Values WBC 12.87 K/mm3 (3.98-10.04) H 05/13/17 20:10 RBC 3.88 M/mm3 (3.98-5.22) L 05/13/17 20:10 Hgb 10.4 gm/L (11.2-15.7) L 05/13/17 20:10 Hct 33.0 % (34.1-44.9) L 05/13/17 20:10 MCV 85.1 fl (79.4-94.8) 05/13/17 20:10 MCH 26.8 pg (25.6-32.2) 05/13/17 20:10 MCHC 31.5 g/dl (32.2-35.5) L 05/13/17 20:10 RDW Std Deviation 47.7 fL (36.4-46.3) H 05/13/17 20:10 Plt Count 217 K/mm3 (182-369) 05/13/17 20:10 MPV 10.7 fl (9.4-12.3) 05/13/17 20:10 Blood Type O POSITIVE 05/13/17 20:10 Gel Antibody Screen Negative 05/13/17 20:10 - Allergies Allergies/Adverse Reactions: Allergies Allergy/AdvReac Type Severity Reaction Status Date / Time latex Allergy Hives Verified 05/13/17 20:19 Penicillins Allergy Anaphylactic Verified 05/13/17 20:19 Shock vancomycin Allergy Itching Verified 05/13/17 20:19 - Anesthesia Plan Pre-Op Medication Ordered: Antacids - Acknowledgements Anesthesia Type Planned: Spinal Pt an Appropriate Candidate for the Planned Anesthesia: Yes Alternatives and Risks of Anesthesia Discussed w Pt/Guardian: Yes Pt/Guardian Understands and Agrees with Anesthesia Plan: Yes PreAnesthesia Questionnaire - Past Health History Medical/Surgical History: Denies Medical/Surgical History HEENT History: Reports: None Cardiovascular History: Reports: None Respiratory History: Reports: Pneumonia, Recurrent Other Respiratory History: yearly pneumonia 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 History: Reports: GERD, Pancreatitis, Other (See Below) Other 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 History: patient states gall bladder issues Genitourinary History: Reports: Other (See Below) Other Genitourinary History: pancreatitis 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: Musculoskeletal History: Reports: None Other Neuro History: bacterial meningitis as a child Psychiatric History: Reports: Depression Endocrine/Metabolic History: Reports: Obesity/BMI 30+ Hematologic History: Reports: Anemia Immunologic History: Reports: None Oncologic (Cancer) History: Reports: None Dermatologic History: Reports: Other (See Below) Other Dermatologic History: tinea versicolor - Infectious Disease History Infectious Disease History: Reports: Meningitis - Past Surgical History GI Surgical History: Reports: Other (See Below) Other GI Surgeries/Procedures: EDG 2017 Female Surgical History: Reports: Section - SUBSTANCE USE Smoking Status *Q: Former Smoker Tobacco Use Within Last Twelve Months: No Second Hand Smoke Exposure: No Days Per Week of Alcohol Use: 0 Recreational Drug Use History: No - HOME MEDS Home Medications: Home Meds Vits #93/Iron Fum/FA [ Formula Tablet] 05/13/17 [History] - CURRENT (IN HOUSE) MEDS Current Meds: Current Medications Diphenhydramine HCl (Benadryl) 25 mg IVPUSH Q6H PRN PRN Reason: Itching Lactated Ringer's (Ringers, Lactated) 1,000 mls @ 125 mls/hr IV ASDIRECTED FUNMI Last Admin: 05/13/17 21:06 Dose: 999 mls/hr Sodium Chloride (Saline Flush) 10 ml FLUSH ASDIRECTED PRN PRN Reason: Keep Vein Open Discontinued Medications Bupivacaine HCl (Marcaine 0.5%) Confirm Administered Dose 30 ml .ROUTE .STK-MED ONE Stop: 05/13/17 20:42 Bupivacaine HCl/Dextrose (Marcaine 0.75% Spinal) Confirm Administered Dose 2 ml .ROUTE .STK-MED ONE Stop: 05/13/17 21:35 Citric Acid/Sodium Citrate (Bicitra Solution) 30 ml PO ONETIME ONE Stop: 05/13/17 19:43 Last Admin: 05/13/17 21:04 Dose: 30 ml Gentamicin Sulfate (Gentamicin) Confirm Administered Dose 80 mg .ROUTE .STK-MED ONE Stop: 05/13/17 21:03 Clindamycin Phosphate 900 mg/ (Sodium Chloride) 106 mls @ 100 mls/hr IV ONETIME ONE Stop: 05/13/17 20:45 Gentamicin Sulfate 470 mg/ (Sodium Chloride) 111.75 mls @ 200 mls/hr IV ONETIME ONE Stop: 05/13/17 20:11 Lactated Ringer's (Ringers, Lactated) Confirm Administered Dose 1,000 mls @ as directed .ROUTE .STK-MED ONE Stop: 05/13/17 22:24 Lactated Ringer's (Ringers, Lactated) Confirm Administered Dose 1,000 mls @ as directed .ROUTE .STK-MED ONE Stop: 05/13/17 22:25 Ketorolac Tromethamine (Toradol) Confirm Administered Dose 30 mg .ROUTE .STK- MED ONE Stop: 05/13/17 22:15 Metoclopramide HCl (Reglan) 10 mg IVPUSH ONETIME ONE Stop: 05/13/17 19:43 Last Admin: 05/13/17 21:04 Dose: 10 mg Morphine Sulfate (Duramorph Pf) Confirm Administered Dose 10 mg .ROUTE .STK-MED ONE Stop: 05/13/17 21:27 Oxytocin (Pitocin) Confirm Administered Dose 10 unit .ROUTE .STK-MED ONE Stop: 05/13/17 21:47
--- NOTE | 2017-05-13 22:49 | PCM.OPNOTE ---
- General Post-Op/Procedure Note Date of Surgery/Procedure: 05/13/17 Operative Procedure(s): repeat section Findings: viable female, vertex, weight 7#10oz, 9/9 APGARS at 2145, normal uterus, tubes and ovaries, Pre Op Diagnosis: SROM, prior , 38w3 Post-Op Diagnosis: Same Anesthesia Technique: Spinal Primary Surgeon: Joan Graf School Psychologist Assistant: Froylan Harmon Jr Role of School Psychologist Assistant: patient safety, retraction Fluid Replacement, Intraop: 3,000 Output, Urine Amount: 325 EBL in mLs: 950 Complications: none Condition: Good Free Text/Narrative:: Intake & Output 05/13/17 05/13/17 05/13/17 06:59 14:59 22:59 Intake Total 1000 Balance 1000 The patient was taken to the operating room where epidural anesthesia was dosed to surgical levels without difficulty. The patient was prepped and draped in the usual sterile fashion in the dorsal supine position with a leftward tilt. A Pfannenstiel skin incision was made with the scalpel through the prior skin incision and carried through to the underlying layer of fascia. The fascia was incised in the midline and extended laterally using Barreto scissors. Sandro clamps were used to elevate the superior aspect of the fascial incision, which was elevated, and the underlying rectus muscles were dissected off bluntly and using Barreto scissors. Attention was then turned to the inferior aspect of the fascial incision, which in similar fashion was grasped with Sandro clamps, elevated, and the underlying rectus muscles were dissected off bluntly and using the barreto. The rectus muscles were dissected in the midline. The peritoneum was entered bluntly; this incision was extended superiorly and inferiorly with good visualization of the bladder. The bladder blade was inserted. The vesicouterine peritoneum was identified and entered sharply using Metzenbaum scissors. This incision was extended laterally and the bladder flap was created digitally. The bladder blade was reinserted. The lower uterine segment was incised in a transverse fashion using the scalpel and with digital traction. Clear fluid was noted. The was subsequently delivered by flexing the head to the incision. Body and shoulders followed without difficulty. The cord was clamped and cut. The was subsequently handed to the awaiting coffee break attendant whose presence had been requested.. The placenta was delivered spontaneously intact with a three-vessel cord noted. The uterus was exteriorized and cleared of all clots and debris. The uterine incision was repaired in 2 layers using 0 monocryl. Hemostasis was visualized. Hemostasis was visualized bilaterally. The uterus was returned to the abdomen. The uterine incision was reexamined and it was noted to be hemostatic. The pelvis was copiously irrigated. The fascia was closed with 1 PDS suture, and the skin was closed with 3-0 monocryl. Sponge, lap, and instrument counts were correct x2. The patient was stable at the completion of the procedure and was subsequently transferred to the recovery room in stable condition.
[2017-05-13] MEDS ORDERED: Docusate Sodium 100 MG Cap PO PRN (23:10)
[2017-05-13] MEDS ORDERED: Naloxone 0.4 MG/ML SDV IVPUSH PRN (23:10)
[2017-05-13] MEDS ORDERED: Dextrose 5%-Lactated Ringers 1,000 ML IV SCH (23:10)
[2017-05-13] MEDS ORDERED: Witch Hazel Medicated Pads 100/Jar TOP PRN (23:10)
[2017-05-13] MEDS ORDERED: ePHEDrine 50 MG/ML SDV IVPUSH PRN (23:10)
[2017-05-13] MEDS ORDERED: Lanolin 100% Cream 7 GM Tube TOP PRN (23:10)
[2017-05-14] MEDS: Acetaminophen/oxyCODONE 325-5 MG Tab PO PRN ×3 (00:42→18:32)
[2017-05-14] MEDS: Ketorolac 30 MG/ML SDV IVPUSH SCH ×3 (03:54→15:35)
[2017-05-14] MEDS ORDERED: Ondansetron 4 MG/2 ML SDV IVPUSH PRN (04:00)
--- NOTE | 2017-05-14 09:41 | PCM.PNPP ---
- General Info Date of Service: 05/14/17 Functional Status: Reports: Pain Controlled - Review of Systems General: Reports: No Symptoms HEENT: Reports: No Symptoms Pulmonary: Reports: No Symptoms Cardiovascular: Reports: No Symptoms 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: Reports: No Symptoms Genitourinary: Reports: No Symptoms Musculoskeletal: Reports: No Symptoms Skin: Reports: No Symptoms Neurological: Reports: No Symptoms Psychiatric: Reports: No Symptoms - General Info Date of Service: 05/14/17 - Patient Data Vital Signs - Most Recent: Last Vital Signs Temp 36.3 C 05/14/17 03:57 Pulse 71 05/14/17 03:57 Resp 16 05/14/17 06:52 BP 122/85 05/14/17 03:57 Pulse Ox 100 05/14/17 06:52 Weight - Most Recent: 93.894 kg I&O - Last 24 Hours: Intake & Output 05/13/17 05/14/17 05/14/17 22:59 06:59 14:59 Intake Total 4000 200 Output Total 650 600 Balance 3350 -400 Lab Results - Last 24 Hours: Laboratory Results - last 24 hr 05/13/17 05/13/17 05/14/17 Range/Units 20:10 20:10 05:40 WBC 12.87 H 15.92 H (3.98-10.04) K/mm3 RBC 3.88 L 3.26 L (3.98-5.22) M/mm3 Hgb 10.4 L 8.6 L (11.2-15.7) gm/L Hct 33.0 L 27.9 L (34.1-44.9) % MCV 85.1 85.6 (79.4-94.8) fl MCH 26.8 26.4 (25.6-32.2) pg MCHC 31.5 L 30.8 L (32.2-35.5) g/dl RDW Std Deviation 47.7 H 46.7 H (36.4-46.3) fL Plt Count 217 186 (182-369) K/mm3 MPV 10.7 11.1 (9.4-12.3) fl Neut % (Auto) 77.0 H (34.0-71.1) % Lymph % (Auto) 15.5 L (19.3-51.7) % [place] % (Auto) 5.5 (4.7-12.5) % Eos % (Auto) 1.5 (0.7-5.8) Baso % (Auto) 0.1 (0.1-1.2) % Neut # (Auto) 12.26 H (1.56-6.13) K/mm3 Lymph # (Auto) 2.46 (1.18-3.74) K/mm3 [place] # (Auto) 0.88 H (0.24-0.36) K/mm3 Eos # (Auto) 0.24 (0.04-0.36) K/mm3 Baso # (Auto) 0.01 (0.01-0.08) K/mm3 Blood Type O POSITIVE Gel Antibody Screen Negative Med Orders - Current: Current Medications Diphenhydramine HCl (Benadryl) 25 mg IVPUSH Q6H PRN PRN Reason: Itching or Nausea Docusate Sodium (Colace) 100 mg PO Q12H PRN PRN Reason: Constipation Emollient Ointment (Lansinoh Hpa) 0 gm TOP ASDIRECTED PRN PRN Reason: Sore Nipples Ephedrine Sulfate (Ephedrine Sulfate) 5 mg IVPUSH SEECOMMENT PRN PRN Reason: Other Ibuprofen (Motrin) 600 mg PO Q6H PRN PRN Reason: mild pain or fever Ketorolac Tromethamine (Toradol) 30 mg IVPUSH Q6H [facility] Stop: 05/14/17 16:01 Last Admin: 05/14/17 03:54 Dose: 30 mg Naloxone HCl (Narcan) 0.1 mg IVPUSH SEECOMMENT PRN PRN Reason: Respiratory Depression Ondansetron HCl (Zofran) 4 mg IVPUSH Q8H PRN PRN Reason: Nausea/Vomiting Last Admin: 05/14/17 04:21 Dose: 4 mg Oxycodone/Acetaminophen (Percocet 325-5 Mg) 2 tab PO Q6H PRN PRN Reason: Pain (moderate 4-6) Last Admin: 05/14/17 00:42 Dose: 2 tab Witch Zuleyma (Tucks) 1 pad TOP ASDIRECTED PRN PRN Reason: Perineal Comfort Measure Discontinued Medications Bupivacaine HCl (Marcaine 0.5%) Confirm Administered Dose 30 ml .ROUTE .STK-MED ONE Stop: 05/13/17 20:42 Last Admin: 05/13/17 21:41 Dose: 20 ml Bupivacaine HCl/Dextrose (Marcaine 0.75% Spinal) Confirm Administered Dose 2 ml .ROUTE .STK-MED ONE Stop: 05/13/17 21:35 Citric Acid/Sodium Citrate (Bicitra Solution) 30 ml PO ONETIME ONE Stop: 05/13/17 19:43 Last Admin: 05/13/17 21:04 Dose: 30 ml Diphenhydramine HCl (Benadryl) 25 mg IVPUSH Q6H PRN PRN Reason: Itching Gentamicin Sulfate (Gentamicin) Confirm Administered Dose 80 mg .ROUTE .ST-MED ONE Stop: 05/13/17 21:03 Last Admin: 05/14/17 00:15 Dose: Not Given Clindamycin Phosphate 900 mg/ (Sodium Chloride) 106 mls @ 100 mls/hr IV ONETIME ONE Stop: 05/13/17 20:45 Last Admin: 05/14/17 00:14 Dose: Not Given Gentamicin Sulfate 470 mg/ (Sodium Chloride) 111.75 mls @ 200 mls/hr IV ONETIME ONE Stop: 05/13/17 20:11 Last Admin: 05/14/17 00:15 Dose: Not Given Lactated Ringer's (Ringers, Lactated) 1,000 mls @ 125 mls/hr IV ASDIRECTED [facility] Last Admin: 05/13/17 21:06 Dose: 999 mls/hr Lactated Ringer's (Ringers, Lactated) Confirm Administered Dose 1,000 mls @ as directed .ROUTE .[facility] ONE Stop: 05/13/17 22:24 Lactated Ringer's (Ringers, Lactated) Confirm Administered Dose 1,000 mls @ as directed .ROUTE .[facility]-MED ONE Stop: 05/13/17 22:25 Dextrose/Lactated Ringer's (Dextrose 5%-Lactated Ringers) 1,000 mls @ 125 mls/ hr IV ASDIRECTED [facility] Stop: 05/14/17 07:09 Last Admin: 05/13/17 23:38 Dose: 125 mls/hr Ketorolac Tromethamine (Toradol) Confirm Administered Dose 30 mg .ROUTE .STK- MED ONE Stop: 05/13/17 22:15 Metoclopramide HCl (Reglan) 10 mg IVPUSH ONETIME ONE Stop: 05/13/17 19:43 Last Admin: 05/13/17 21:04 Dose: 10 mg Morphine Sulfate (Duramorph Pf) Confirm Administered Dose 10 mg .ROUTE .STK-MED ONE Stop: 05/13/17 21:27 Oxytocin (Pitocin) Confirm Administered Dose 10 unit .ROUTE .STK-MED ONE Stop: 05/13/17 21:47 Sodium Chloride (Saline Flush) 10 ml FLUSH ASDIRECTED PRN PRN Reason: Keep Vein Open - Interaction Infant Disposition, : Mcbee at Bedside Interaction: Holding Support Person: - Recovery Exam Fundal Tone: Firm Fundal Level: 1 Fingerbreadths Below Umbilicus Fundal Placement: Midline Lochia Amount: Small, Moderate Lochia Color: Rubra/Red Perineum Description: Intact, Minimal Bruising/Swelling Bladder Status: Indwelling Catheter in Place Urinary Elimination: Indwelling Catheter - Exam General: Alert, Oriented HEENT: Pupils Equal Neck: Supple Lungs: Clear to Auscultation, Normal Respiratory Effort Cardiovascular: Regular Rate, Regular Rhythm GI/Abdominal Exam: Normal Bowel Sounds, Soft, Non-Tender, No Organomegaly, No Distention, No Abnormal Bruit, No Mass, Pelvis Stable Extremities: Normal Inspection, Normal Range of Motion, Non-Tender, No Pedal Edema, Normal Capillary Refill Wound/Incisions: Healing Well Neurological: No New Focal Deficit Psy/Mental Status: Alert, Normal Affect, Normal Mood - Problem List Review Problem List Initiated/Reviewed/Updated: Yes - My Orders Last 24 Hours: My Active Orders 05/13/17 19:42 Resuscitation Status Routine 05/13/17 19:47 Heart Tones [RC] PER UNIT ROUTINE Vital Signs [RC] PFP 05/13/17 20:50 Schedule Procedure [COMM] Urgent 05/13/17 23:10 Communication Order [RC] PER UNIT ROUTINE Communication Order [RC] PER UNIT ROUTINE Communication Order [RC] PER UNIT ROUTINE Notify Provider Intake and Out [RC] ASDIRECTED Vital Signs [RC] Q1HR Acetaminophen/oxyCODONE [Percocet 325-5 MG] 2 tab PO Q6H PRN Docusate Sodium [Colace] 100 mg PO Q12H PRN Lanolin [Lansinoh HPA] See Dose Instructions TOP ASDIRECTED PRN Naloxone [Narcan] 0.1 mg IVPUSH SEECOMMENT PRN Witch Zuleyma [Tucks] 1 pad TOP ASDIRECTED PRN diphenhydrAMINE [Benadryl] 25 mg IVPUSH Q6H PRN ePHEDrine [ePHEDrine Sulfate] 5 mg IVPUSH SEECOMMENT PRN Assess Lochia [WOMSER] Per Unit Routine Assess Uterine Involution [WOMSER] Per Unit Routine Medication Administration Instruction [OM.PC] Routine 05/14/17 04:00 Ketorolac [Toradol] 30 mg IVPUSH Q6H Ondansetron [Zofran] 4 mg IVPUSH Q8H PRN 05/14/17 22:00 Ibuprofen [Motrin] 600 mg PO Q6H PRN 05/14/17 22:33 Urinary Catheter Removal [RC] Per Unit Routine - Assessment Assessment:: POD1 Doing great. Routine postop care - Plan Plan:: Prior . Desires repeat. Proceed with RCS.
[2017-05-14] MEDS: Ibuprofen 600 MG Tab PO PRN (22:55)
[2017-05-15] MEDS: Acetaminophen/oxyCODONE 325-5 MG Tab PO PRN ×4 (00:33→19:19)
[2017-05-15] MEDS: Ibuprofen 600 MG Tab PO PRN ×2 (06:00→11:52)
--- NOTE | 2017-05-15 09:53 | PCM.DCSUM1 ---
Discharge Summary - Hospital Course Brief History: admitted with SROM. RCS no complications - Discharge Data Discharge Date: 05/15/17 Discharge Disposition: Home, Self-Care 01 Condition: Good - Patient Summary/Data Operative Procedure(s) Performed: repeat section - Patient Instructions Diet: Usual Diet as Tolerated Activity: No Strenuous Activities Driving: May Drive Today Wound/Incision Care: Keep Operative Site/Wound Site Clean and Dry Notify Provider of: Fever, Increased Pain, Swelling and Redness, Drainage, Nausea and/or Vomiting - Discharge Plan Home Medications: Home Meds Vits #93/Iron Fum/FA [ Formula Tablet] 05/13/17 [History] Referrals: Faustino Persaud MD [Physician] - (2 weeks) - Discharge Summary/Plan Comment DC Time >30 min.: No - General Info Date of Service: 05/15/17 Functional Status: Reports: Pain Controlled - Review of Systems General: Reports: No Symptoms HEENT: Reports: No Symptoms Pulmonary: Reports: No Symptoms Cardiovascular: Reports: No Symptoms 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: Reports: No Symptoms Genitourinary: Reports: No Symptoms Musculoskeletal: Reports: No Symptoms Skin: Reports: No Symptoms Neurological: Reports: No Symptoms Psychiatric: Reports: No Symptoms - Patient Data Vitals - Most Recent: Last Vital Signs Temp 36.3 C 05/15/17 03:53 Pulse 67 05/15/17 03:26 Resp 17 05/15/17 03:26 BP 116/79 05/15/17 03:26 Pulse Ox 96 05/15/17 03:26 Weight - Most Recent: 93.894 kg I&O - Last 24 hours: Intake & Output 05/14/17 05/15/17 05/15/17 22:59 06:59 14:59 Intake Total 480 Balance 480 Med Orders - Current: Current Medications Diphenhydramine HCl (Benadryl) 25 mg IVPUSH Q6H PRN PRN Reason: Itching or Nausea Docusate Sodium (Colace) 100 mg PO Q12H PRN PRN Reason: Constipation Emollient Ointment (Lansinoh Hpa) 0 gm TOP ASDIRECTED PRN PRN Reason: Sore Nipples Ephedrine Sulfate (Ephedrine Sulfate) 5 mg IVPUSH SEECOMMENT PRN PRN Reason: Other Ibuprofen (Motrin) 600 mg PO Q6H PRN PRN Reason: mild pain or fever Last Admin: 05/15/17 06:00 Dose: 600 mg Naloxone HCl (Narcan) 0.1 mg IVPUSH SEECOMMENT PRN PRN Reason: Respiratory Depression Ondansetron HCl (Zofran) 4 mg IVPUSH Q8H PRN PRN Reason: Nausea/Vomiting Last Admin: 05/14/17 04:21 Dose: 4 mg Oxycodone/Acetaminophen (Percocet 325-5 Mg) 2 tab PO Q6H PRN PRN Reason: Pain (moderate 4-6) Last Admin: 05/15/17 06:58 Dose: 2 tab Witch Zuleyma (Tucks) 1 pad TOP ASDIRECTED PRN PRN Reason: Perineal Comfort Measure Discontinued Medications Bupivacaine HCl (Marcaine 0.5%) Confirm Administered Dose 30 ml .ROUTE .STK-MED ONE Stop: 05/13/17 20:42 Last Admin: 05/13/17 21:41 Dose: 20 ml Bupivacaine HCl/Dextrose (Marcaine 0.75% Spinal) Confirm Administered Dose 2 ml .ROUTE .STK-MED ONE Stop: 05/13/17 21:35 Citric Acid/Sodium Citrate (Bicitra Solution) 30 ml PO ONETIME ONE Stop: 05/13/17 19:43 Last Admin: 05/13/17 21:04 Dose: 30 ml Diphenhydramine HCl (Benadryl) 25 mg IVPUSH Q6H PRN PRN Reason: Itching Gentamicin Sulfate (Gentamicin) Confirm Administered Dose 80 mg .ROUTE .STK-MED ONE Stop: 05/13/17 21:03 Last Admin: 05/14/17 00:15 Dose: Not Given Clindamycin Phosphate 900 mg/ (Sodium Chloride) 106 mls @ 100 mls/hr IV ONETIME ONE Stop: 05/13/17 20:45 Last Admin: 05/14/17 00:14 Dose: Not Given Gentamicin Sulfate 470 mg/ (Sodium Chloride) 111.75 mls @ 200 mls/hr IV ONETIME ONE Stop: 05/13/17 20:11 Last Admin: 05/14/17 00:15 Dose: Not Given Lactated Ringer's (Ringers, Lactated) 1,000 mls @ 125 mls/hr IV ASDIRECTED FUNMI Last Admin: 05/13/17 21:06 Dose: 999 mls/hr Lactated Ringer's (Ringers, Lactated) Confirm Administered Dose 1,000 mls @ as directed .ROUTE .STK-MED ONE Stop: 05/13/17 22:24 Lactated Ringer's (Ringers, Lactated) Confirm Administered Dose 1,000 mls @ as directed .ROUTE .STK-MED ONE Stop: 05/13/17 22:25 Dextrose/Lactated Ringer's (Dextrose 5%-Lactated Ringers) 1,000 mls @ 125 mls/ hr IV ASDIRECTED FUNMI Stop: 05/14/17 07:09 Last Admin: 05/13/17 23:38 Dose: 125 mls/hr Ketorolac Tromethamine (Toradol) Confirm Administered Dose 30 mg .ROUTE .STK- MED ONE Stop: 05/13/17 22:15 Ketorolac Tromethamine (Toradol) 30 mg IVPUSH Q6H [facility] Stop: 05/14/17 16:01 Last Admin: 05/14/17 15:35 Dose: 30 mg Metoclopramide HCl (Reglan) 10 mg IVPUSH ONETIME ONE Stop: 05/13/17 19:43 Last Admin: 05/13/17 21:04 Dose: 10 mg Morphine Sulfate (Duramorph Pf) Confirm Administered Dose 10 mg .ROUTE .STK-MED ONE Stop: 05/13/17 21:27 Oxytocin (Pitocin) Confirm Administered Dose 10 unit .ROUTE .STK-MED ONE Stop: 05/13/17 21:47 Sodium Chloride (Saline Flush) 10 ml FLUSH ASDIRECTED PRN PRN Reason: Keep Vein Open - Exam General: Reports: Alert, Oriented HEENT: Reports: Pupils Equal, Pupils Reactive, EOMI, Mucous Membr. Moist/[place] Neck: Reports: Supple Lungs: Reports: Clear to Auscultation, Normal Respiratory Effort Cardiovascular: Reports: Regular Rate, Regular Rhythm GI/Abdominal Exam: Normal Bowel Sounds, Soft, Non-Tender, No Organomegaly, No Distention, No Abnormal Bruit, No Mass, Pelvis Stable (Female) Exam: Normal External Exam, Normal Speculum Exam, Normal Bimanual Exam Back Exam: Reports: Normal Inspection, Full Range of Motion Extremities: Normal Inspection, Normal Range of Motion, Non-Tender, No Pedal Edema, Normal Capillary Refill Skin: Reports: Warm, Dry, Intact Wound/Incisions: Reports: Healing Well Neurological: Reports: No New Focal Deficit Psy/Mental Status: Reports: Alert, Normal Affect, Normal Mood
[2017-05-15 11:54] VITALS: BP 113/63
== END 2017-05-15 19:25 | disposition home or self-care (01) | DRG 766 ==
LOC: JD.OBCHECK 19:22 → JD.OB 19:27 → JD.OBCHECK 19:47 → JD.OB 20:09 → OBSVTOIN 20:09 → JD.OB 21:48
PROVIDERS: ADMIT Obstetrics & Gynecology; ATTEND Obstetrics & Gynecology
PROC: 10D00Z1 Extraction of Products of Conception, Low, Open Approach (ICD-10-PCS; principal; 2017-05-13)
DX: O42.02 Full-term premature rupture of membranes, onset of labor within 24 hours of rupture (principal); Z3A.38 38 weeks gestation of pregnancy; Z37.0 Single live birth; O34.211 Maternal care for low transverse scar from previous cesarean delivery; N85.8 Other specified noninflammatory disorders of uterus; O99.824 Streptococcus B carrier state complicating childbirth; Z88.0 Allergy status to penicillin; Z88.1 Allergy status to other antibiotic agents; Z91.040 Latex allergy status; Z87.891 Personal history of nicotine dependence
CPT/HCPCS: 01961; 36415; 59025; 85025; 85027; 86850; 86900; 86901; A9270-GY; J1885; J2270; J2405; J2590; J2765; J7042; J7120